=== PATIENT | female | born 1975 | race African-American/Black ===

== ENCOUNTER 2024-01-05 08:53 | Inpatient (IN) | payer OTHER ==
[~2024-01-05] VITALS: Ht 162.6 cm; Wt 103.0 kg
[2024-01-05] VITALS (9 sets, daily range): BP systolic 126–156; BP diastolic 59–81; PULSE 65–81; RESP 16–20; TEMP 98–98.9; O2SAT 94–100
[~2024-01-05 08:53] MED LIST: HYDR12.55 OR; IPRIH IN; PREN27TA7 OR
[2024-01-05] MEDS: IPRATROPIUM BROM 0.5 MG/2.5ML INH SOL NEB ONE ×2 (09:44→11:09)
[2024-01-05] MEDS: ALBUTEROL SULF 2.5 MG/0.5ML(0.5%) NEB SOLN NEB ONE ×2 (09:44→11:09)
[2024-01-05] MEDS: methylPREDNISolone SOD SUCC 125 MG/2 ML VL IV ONE (09:52)
[2024-01-05] MEDS: MAGNESIUM SULFATE 1GM/100ML 100 ML IV ONE (09:52)
[2024-01-05 09:58] LABS: Alanine Aminotransferase 31 U/L (7-40); Albumin 3.9 g/dL (3.2-4.8); Alkaline Phosphatase 68 U/L (46-116); Anion Gap 7 (5-15); Aspartate Aminotransferase 24 U/L (13-40); BUN/Creatinine Ratio 9.9 (10.0-20.0); Bilirubin, Total 0.6 mg/dL (0.2-1.0); Blood Urea Nitrogen 8 mg/dL (9-23); Calcium 9.6 mg/dL (8.7-10.4); Carbon Dioxide 24 mmol/L (20-30); Chloride 109 mmol/L (98-107); Glucose 115 mg/dL (74-106); Magnesium 1.9 mg/dL (1.6-2.6); Potassium 3.6 mmol/L (3.5-5.1); Sodium 140 mmol/L (136-145); Total Protein 6.5 g/dL (5.7-8.2)
[2024-01-05 10:02] LABS: Eosinophils # (auto) 0.1 10 ^3/uL (0-0.8); Hemoglobin 8.7 g/dL (12.2-16.2); INR 1.08 (0.9-1.15); Nucleated Red Blood Cells % 0.2 %; Partial Thromboplastin Time 26.2 SEC (24.5-34.5); Prothrombin Time 11.4 sec (9.3-11.8)
[2024-01-05 10:05] LABS: Basophils # (auto) 0.1 10 ^3/uL (0-0.2); Basophils % (auto) 1.1 % (0.0-2.0); Hematocrit 28.8 % (36.0-46.0); Lymphocytes # (auto) 1.3 10 ^3/uL (0.4-5.4); Lymphocytes % (auto) 14.7 % (10.0-50.0); Mean Corpuscular Hemoglobin 20.9 pg (28.0-32.0); Mean Corpuscular Hgb Conc. 30.4 g/dL (32.0-36.0); Mean Corpuscular Volume 68.7 fL (80.0-100.0); Monocytes # (auto) 0.4 10 ^3/uL (0-1.3); Monocytes % (auto) 4.9 % (0.0-12.0); Neutrophils # (auto) 6.8 10 ^3/uL (1.6-8.6); Neutrophils % (auto) 78.3 % (37.0-80.0); Platelet Count (auto) 321 10^3/uL (140-450); Red Blood Cells 4.19 10^6/uL (4.0-5.20); White Blood Cell 8.7 10^3/uL (4.4-10.8)
[2024-01-05 10:07] LABS: Red Cell Distribution Width 21.6 % (11.8-14.3)
[2024-01-05] MEDS: ENOXAPARIN SOD 100 MG/1 ML SYRINGE SC ONE (10:19)
[2024-01-05] MEDS: LABETALOL HCL 20 MG/4 ML VL IV ONE (10:19)
[2024-01-05] MEDS: FUROSEMIDE 20 MG/2 ML VIAL IV ONE (10:20)
[2024-01-05 11:11] LABS: Urine Bacteria None Seen /hpf (None Seen); Urine WBC None Seen /hpf (0 - 5)
[2024-01-05] MEDS: ONDANSETRON HCL 4 MG/2 ML VIAL IV ONE (11:22)
[2024-01-05] MEDS: cloNIDine HCL 0.1 MG TAB PO ONE (11:22)
[2024-01-05] MEDS: POTASSIUM CHL 20 Meq TABLET PO ONE (11:22)
[2024-01-05] MEDS: MORPHINE SULFATE 4 MG/ML SYR/VIAL IV ONE (11:23)
[2024-01-05 11:34] LABS: Urine Blood Negative /uL (Negative); Urine Clarity Turbid (Clear); Urine Color Colorless (Yellow); Urine Hyaline Cast FEW /lpf (0 - 2); Urine Protein, UAD 1+ (Negative); Urine Specific Gravity 1.005 (1.001-1.035); Urine Urobilinogen Normal (Negative)
[2024-01-05 12:08] LABS: Platelet Estimate Adequate
[2024-01-05 12:09] LABS: Anisocytosis Slight; Hypochromia Moderate; Ovalocytes MANY
[2024-01-05 12:10] LABS: Target Cell FEW
[2024-01-05] MEDS ORDERED: MORPHINE SULFATE INJ 2 MG/ml SYRG IV PRN (17:45)
[2024-01-05] MEDS ORDERED: AMLO1TAB23 PO (18:03)
[2024-01-05] MEDS ORDERED: FENO160T PO (18:06)
[2024-01-05] MEDS: ALBUTEROL SULF 2.5 MG/0.5ML(0.5%) NEB SOLN NEB SCH (19:28)
[2024-01-05] MEDS: IPRATROPIUM BROM 0.5 MG/2.5ML INH SOL NEB SCH (19:28)
[2024-01-05] MEDS: methylPREDNISolone SOD SUCC 40 MG/ML VL IV SCH (21:26)
[2024-01-05] MEDS: HYDROcodone-ACET 5/325MG TAB PO PRN (21:26)
[2024-01-05] MEDS: BUDESONIDE (INHALATION) 0.5 MG/2 ML NEB NEB SCH (22:05)
[2024-01-06] VITALS (18 sets, daily range): BP systolic 141–170; BP diastolic 78–93; PULSE 60–80; RESP 14–20; TEMP 97.7–98.5; O2SAT 92–100
[2024-01-06] MEDS ORDERED: DICL50TA5 PO (02:45)
[2024-01-06] MEDS ORDERED: SUMA100T15 PO (02:45)
[2024-01-06] MEDS ORDERED: CHOL0.05 PO (02:45)
[2024-01-06] MEDS ORDERED: GABA-1250 PO (02:45)
[2024-01-06] MEDS ORDERED: CLON0.1T PO (02:45)
[2024-01-06] MEDS ORDERED: ALBU0.084 IN (02:45)
[2024-01-06] MEDS: ONDANSETRON HCL 4 MG/2 ML VIAL IV PRN (06:32)
[2024-01-06] MEDS: MORPHINE SULFATE INJ 2 MG/ml SYRG IV PRN (06:37)
[2024-01-06 07:00] LABS: Anion Gap 5 (5-15); Carbon Dioxide 25 mmol/L (20-30); Chloride 106 mmol/L (98-107); Potassium 4.5 mmol/L (3.5-5.1); Sodium 136 mmol/L (136-145)
[2024-01-06 07:02] LABS: Calcium 9.6 mg/dL (8.7-10.4)
[2024-01-06 07:06] LABS: Glucose 148 mg/dL (74-106)
[2024-01-06 07:07] LABS: BUN/Creatinine Ratio 12.9 (10.0-20.0); Blood Urea Nitrogen 11 mg/dL (9-23)
[2024-01-06 07:30] LABS: Eosinophils # (auto) 0 10 ^3/uL (0-0.8); Lymphocytes # (auto) 0.5 10 ^3/uL (0.4-5.4); Monocytes # (auto) 0.4 10 ^3/uL (0-1.3); Platelet Count (auto) 280 10^3/uL (140-450)
[2024-01-06 07:34] LABS: Basophils # (auto) 0 10 ^3/uL (0-0.2); Basophils % (auto) 0.3 % (0.0-2.0); Eosinophils % (auto) 0.1 % (0.0-7.0); Hematocrit 26.5 % (36.0-46.0); Hemoglobin 7.8 g/dL (12.2-16.2); Lymphocytes % (auto) 3.9 % (10.0-50.0); Mean Corpuscular Hemoglobin 20.8 pg (28.0-32.0); Mean Corpuscular Hgb Conc. 29.5 g/dL (32.0-36.0); Mean Corpuscular Volume 70.5 fL (80.0-100.0); Monocytes % (auto) 3.2 % (0.0-12.0); Neutrophils # (auto) 10.8 10 ^3/uL (1.6-8.6); Neutrophils % (auto) 92.5 % (37.0-80.0); Nucleated Red Blood Cells % 0.3 %; Red Blood Cells 3.76 10^6/uL (4.0-5.20); White Blood Cell 11.6 10^3/uL (4.4-10.8)
[2024-01-06 07:44] LABS: Red Cell Distribution Width 21.5 % (11.8-14.3)
[2024-01-06 09:18] LABS: Anisocytosis Slight; Giant Platelets Few; Platelet Estimate Adequate
[2024-01-06 09:19] LABS: Hypochromia Marked; Ovalocytes MANY
[2024-01-06] MEDS: DOCUSATE SOD 100 MG CAP PO SCH (11:02)
[2024-01-06] MEDS: amLODIPine BESYLATE 5 MG TAB PO SCH (11:03)
[2024-01-06] MEDS: hydroCHLOROthiazide 25 MG TAB PO SCH (11:04)
[2024-01-06] MEDS: FUROSEMIDE 40 MG/4 ML VIAL IV ONE (11:06)
[2024-01-06] MEDS: MAGNESIUM SULFATE 1GM/100ML 100 ML IV ONE (11:07)
[2024-01-06 11:23] LABS: Blood Alcohol < 3.0 mg/dL (<10); Cholesterol 193 mg/dL (< 200); LDL Cholesterol 122 mg/dL (< 100); Triglycerides 146 mg/dL (< 150)
[2024-01-06 11:24] LABS: HDL Cholesterol 55 mg/dL (40-59)
[2024-01-06 14:51] LABS: COVID19 ANTIGEN SOFIA FIA NEGATIVE (NEGATIVE); Rapid Influenza A Negative (Negative); Rapid Influenza B Negative (Negative)
[2024-01-06] MEDS: CARVEDILOL 12.5 MG TAB PO ONE (14:58)
[2024-01-06 16:28] LABS: % Iron Saturation 5.6 % (15-50)
[2024-01-06] MEDS: PANTOPRAZOLE 40 MG TAB PO ONE (16:30)
[2024-01-06] MEDS: ASPirin 81 mg TAB PO ONE (16:30)
[2024-01-06] MEDS: ENOXAPARIN SOD 40 MG/0.4 ML SYRINGE SC ONE (16:30)
[2024-01-06] MEDS: NIFEdipine ER 30 MG TAB PO ONE (16:35)
[2024-01-06 17:05] LABS: Hemoglobin 8.7 g/dL (12.2-16.2)
[2024-01-06 17:06] LABS: Hematocrit 29.2 % (36.0-46.0)
[2024-01-06] MEDS: IPRATROPIUM BROM 0.5 MG/2.5ML INH SOL NEB SCH (18:32)
[2024-01-06] MEDS: LEVALBUTEROL HCL 1.25 MG/3 ML NEB NEB SCH (18:33)
[2024-01-06] MEDS: FERROUS SULFATE 325mg EC TAB PO SCH (20:17)
[2024-01-06] MEDS: ATORVASTATIN 20 MG TAB PO SCH (22:01)
[2024-01-06] MEDS: CARVEDILOL 12.5 MG TAB PO SCH (22:02)
[2024-01-06] MEDS: FUROSEMIDE 40 MG/4 ML VIAL IV SCH (22:21)
[2024-01-06] MEDS: ERGOCALCIFEROL 50,000 UNIT(1.25MG) CAP PO SCH (23:30)
[2024-01-07] VITALS (15 sets, daily range): BP systolic 127–166; BP diastolic 55–85; PULSE 52–97; RESP 17–20; TEMP 97.6–98.1; O2SAT 93–100
[2024-01-07] MEDS ORDERED: HYDROcodone-ACET 5/325MG TAB PO PRN (03:30)
[2024-01-07] MEDS: PANTOPRAZOLE 40 MG TAB PO SCH (06:31)
[2024-01-07 06:57] LABS: Calcium 10.8 mg/dL (8.7-10.4); Chloride 100 mmol/L (98-107); Potassium 3.9 mmol/L (3.5-5.1); Sodium 138 mmol/L (136-145)
[2024-01-07 06:58] LABS: Anion Gap 5 (5-15); Carbon Dioxide 33 mmol/L (20-30)
[2024-01-07 07:04] LABS: BUN/Creatinine Ratio 18.3 (10.0-20.0); Blood Urea Nitrogen 19 mg/dL (9-23); Glucose 136 mg/dL (74-106)
[2024-01-07 07:33] LABS: Basophils # (auto) 0 10 ^3/uL (0-0.2); Eosinophils # (auto) 0 10 ^3/uL (0-0.8); Lymphocytes # (auto) 0.6 10 ^3/uL (0.4-5.4); Mean Corpuscular Hgb Conc. 30.5 g/dL (32.0-36.0); Monocytes # (auto) 0.5 10 ^3/uL (0-1.3)
[2024-01-07 07:36] LABS: Basophils % (auto) 0.1 % (0.0-2.0); Hematocrit 29.1 % (36.0-46.0); Hemoglobin 8.9 g/dL (12.2-16.2); Lymphocytes % (auto) 3.9 % (10.0-50.0); Mean Corpuscular Volume 68.6 fL (80.0-100.0); Monocytes % (auto) 3.8 % (0.0-12.0); Neutrophils # (auto) 13.3 10 ^3/uL (1.6-8.6); Neutrophils % (auto) 92.2 % (37.0-80.0); Nucleated Red Blood Cells % 0.2 %; Platelet Count (auto) 321 10^3/uL (140-450); Red Blood Cells 4.23 10^6/uL (4.0-5.20); Red Cell Distribution Width 21.8 % (11.8-14.3); White Blood Cell 14.4 10^3/uL (4.4-10.8)
[2024-01-07] MEDS: NITROGLYCERIN 0.4 MG SL TAB SL PRN (08:40)
[2024-01-07] MEDS: ENOXAPARIN SOD 40 MG/0.4 ML SYRINGE SC SCH (09:48)
[2024-01-07] MEDS: MORPHINE SULFATE INJ 2 MG/ml SYRG IV ONE (09:48)
[2024-01-07] MEDS: ASPirin 81 mg TAB PO SCH (09:49)
[2024-01-07] MEDS: NIFEdipine ER 30 MG TAB PO SCH (11:03)
[2024-01-07] MEDS: CYANOCOBALAMIN (B-12) 1000 MCG/1 ML VIAL IM ONE (11:06)
[2024-01-07] MEDS: HYDROcodone-ACET 10/325MG TAB PO PRN (16:00)
[2024-01-07] MEDS: LORATADINE 10 MG TAB PO ONE (17:46)
[2024-01-08] VITALS (17 sets, daily range): BP systolic 117–159; BP diastolic 61–84; PULSE 52–68; RESP 14–20; TEMP 97.3–98.4; O2SAT 90–100
[2024-01-08] MEDS: hydrALAZINE HCL 20 MG/ML VL IV PRN (05:28)
[2024-01-08] MEDS: LORATADINE 10 MG TAB PO SCH (09:11)
[2024-01-08 10:18] LABS: Basophils # (auto) 0.1 10 ^3/uL (0-0.2); Eosinophils # (auto) 0 10 ^3/uL (0-0.8); Hemoglobin 10.8 g/dL (12.2-16.2); Mean Corpuscular Volume 66.9 fL (80.0-100.0); Nucleated Red Blood Cells % 0.2 %
[2024-01-08 10:19] LABS: Basophils % (auto) 0.4 % (0.0-2.0); Eosinophils % (auto) 0.1 % (0.0-7.0); Hematocrit 35.3 % (36.0-46.0); Lymphocytes # (auto) 1.5 10 ^3/uL (0.4-5.4); Lymphocytes % (auto) 10.2 % (10.0-50.0); Mean Corpuscular Hemoglobin 20.5 pg (28.0-32.0); Mean Corpuscular Hgb Conc. 30.7 g/dL (32.0-36.0); Monocytes % (auto) 6.4 % (0.0-12.0); Neutrophils # (auto) 12.4 10 ^3/uL (1.6-8.6); Neutrophils % (auto) 82.9 % (37.0-80.0); Platelet Count (auto) 397 10^3/uL (140-450); Red Blood Cells 5.28 10^6/uL (4.0-5.20); Red Cell Distribution Width 22.4 % (11.8-14.3); White Blood Cell 14.9 10^3/uL (4.4-10.8)
[2024-01-08] MEDS: MORPHINE SULFATE INJ 2 MG/ml SYRG IV PRN ×2 (10:23→23:35)
[2024-01-08 10:31] LABS: Alanine Aminotransferase 26 U/L (7-40); Albumin 4.5 g/dL (3.2-4.8); Alkaline Phosphatase 69 U/L (46-116); Anion Gap 7 (5-15); Aspartate Aminotransferase 11 U/L (13-40); Blood Urea Nitrogen 23 mg/dL (9-23); Calcium 11.2 mg/dL (8.7-10.4); Carbon Dioxide 35 mmol/L (20-30); Chloride 95 mmol/L (98-107); Glucose 102 mg/dL (74-106); Potassium 3.5 mmol/L (3.5-5.1); Sodium 137 mmol/L (136-145)
[2024-01-08 10:32] LABS: Bilirubin, Total 0.6 mg/dL (0.2-1.0); Total Protein 7.8 g/dL (5.7-8.2)
[2024-01-08 10:42] LABS: Anisocytosis Slight; Hypochromia Slight; Platelet Estimate Adequate
[2024-01-08 10:43] LABS: Ovalocytes MODERATE
[2024-01-08] MEDS: IPRATROPIUM BROM 0.5 MG/2.5ML INH SOL NEB SCH (19:01)
[2024-01-09] VITALS (22 sets, daily range): BP systolic 120–155; BP diastolic 72–89; PULSE 50–82; RESP 12–20; TEMP 97–98.1; O2SAT 91–100
[2024-01-09 06:36] LABS: Basophils # (auto) 0.1 10 ^3/uL (0-0.2); Basophils % (auto) 0.4 % (0.0-2.0); Eosinophils # (auto) 0 10 ^3/uL (0-0.8); Eosinophils % (auto) 0.1 % (0.0-7.0); Hemoglobin 10.8 g/dL (12.2-16.2)
[2024-01-09 06:38] LABS: Hematocrit 34.9 % (36.0-46.0); Lymphocytes # (auto) 2.7 10 ^3/uL (0.4-5.4); Lymphocytes % (auto) 20.4 % (10.0-50.0); Mean Corpuscular Volume 67.9 fL (80.0-100.0); Monocytes # (auto) 1.1 10 ^3/uL (0-1.3); Monocytes % (auto) 8.3 % (0.0-12.0); Neutrophils # (auto) 9.2 10 ^3/uL (1.6-8.6); Neutrophils % (auto) 70.8 % (37.0-80.0); Nucleated Red Blood Cells % 0.2 %; Platelet Count (auto) 404 10^3/uL (140-450); Red Blood Cells 5.14 10^6/uL (4.0-5.20)
[2024-01-09 06:43] LABS: Alanine Aminotransferase 17 U/L (7-40); Alkaline Phosphatase 61 U/L (46-116); Anion Gap 5 (5-15); BUN/Creatinine Ratio 22.3 (10.0-20.0); Blood Urea Nitrogen 27 mg/dL (9-23); Calcium 10.2 mg/dL (8.7-10.4); Carbon Dioxide 36 mmol/L (20-30); Chloride 96 mmol/L (98-107); Glucose 97 mg/dL (74-106); Magnesium 2.1 mg/dL (1.6-2.6); Potassium 3.6 mmol/L (3.5-5.1); Sodium 137 mmol/L (136-145)
[2024-01-09 06:44] LABS: Aspartate Aminotransferase < 8 U/L (13-40); Phosphorus 3.9 mg/dL (2.4-5.1)
[2024-01-09 06:45] LABS: Bilirubin, Total 0.4 mg/dL (0.2-1.0); Total Protein 6.8 g/dL (5.7-8.2)
[2024-01-09 06:57] LABS: Red Cell Distribution Width 21.5 % (11.8-14.3)
[2024-01-09 08:47] LABS: Anisocytosis Moderate; Platelet Estimate Adequate
[2024-01-09 08:48] LABS: Hypochromia Slight; Ovalocytes MANY; Tear Drop Cells FEW
[2024-01-09] MEDS: LOSARTAN POTASSIUM 25 MG TAB PO SCH (09:11)
[2024-01-09] MEDS ORDERED: FUROSEMIDE 40 MG/4 ML VIAL IV SCH (10:00)
[2024-01-09 11:04] LABS: Folate (Folic Acid) 11.4 ng/mL (>5.38)
[2024-01-09 11:05] LABS: Ferritin 7.4 ng/mL (10-291)
[2024-01-09] MEDS: HEPARIN SODIUM (PORCINE) 5000 UNITS/ML 1ML VIAL ONE (12:36)
[2024-01-09] MEDS: ANGIOMAX 250 MG VIAL IV ONE (12:36)
[2024-01-09] MEDS: fentaNYL CITRATE 100 MCG/2 ML VL ONE (12:36)
[2024-01-09] MEDS: MIDAZOLAM HCL 2MG/2ML 2ml VIAL (1mg/ml) ONE (12:36)
[2024-01-09] MEDS: VERAPAMIL 2.5MG/ML INJ 2ML VIAL IV ONE (12:36)
[2024-01-09] MEDS: LIDOCAINE 2%HCL (LOCAL ANESTH.) INJ 20ML MDV ONE (12:37)
[2024-01-09] MEDS: SODIUM CHL 0.9% 50 ML ONE (12:37)
[2024-01-09] MEDS: SODIUM CHLORIDE 0.9% 1,000 ML IV SCH (17:35)
[2024-01-09] MEDS: LEVALBUTEROL HCL 1.25 MG/3 ML NEB NEB SCH (19:19)
[2024-01-10] VITALS (15 sets, daily range): BP systolic 110–137; BP diastolic 55–84; PULSE 49–68; RESP 14–20; TEMP 98–98.5; O2SAT 93–100
[2024-01-10 11:06] LABS: Chloride 97 mmol/L (98-107); Potassium 3.4 mmol/L (3.5-5.1); Sodium 136 mmol/L (136-145)
[2024-01-10 11:07] LABS: Anion Gap 5 (5-15); Calcium 9.9 mg/dL (8.7-10.4); Carbon Dioxide 34 mmol/L (20-30)
[2024-01-10 11:12] LABS: BUN/Creatinine Ratio 18.8 (10.0-20.0); Blood Urea Nitrogen 27 mg/dL (9-23); Glucose 133 mg/dL (74-106)
[2024-01-10] MEDS ORDERED: [UNRECOGNIZED DRUG - CODE] TL (13:36)
[2024-01-10] MEDS ORDERED: ISOS1TAB28 PO (13:36)
[2024-01-10 15:46] LABS: Basophils # (auto) 0.1 10 ^3/uL (0-0.2); Basophils % (auto) 0.5 % (0.0-2.0); Eosinophils # (auto) 0.2 10 ^3/uL (0-0.8); Hematocrit 35.6 % (36.0-46.0); Lymphocytes # (auto) 1.8 10 ^3/uL (0.4-5.4); Lymphocytes % (auto) 17.9 % (10.0-50.0); Mean Corpuscular Hemoglobin 20.9 pg (28.0-32.0); Mean Corpuscular Hgb Conc. 30.9 g/dL (32.0-36.0); Mean Corpuscular Volume 67.7 fL (80.0-100.0); Monocytes # (auto) 0.8 10 ^3/uL (0-1.3); Monocytes % (auto) 7.5 % (0.0-12.0); Neutrophils # (auto) 7.3 10 ^3/uL (1.6-8.6); Neutrophils % (auto) 72.1 % (37.0-80.0); Platelet Count (auto) 327 10^3/uL (140-450); Red Blood Cells 5.26 10^6/uL (4.0-5.20); Red Cell Distribution Width 22.3 % (11.8-14.3); White Blood Cell 10.2 10^3/uL (4.4-10.8)
[2024-01-10] MEDS: POTASSIUM CHL 20 Meq TABLET PO ONE (18:42)
[2024-01-10] MEDS: LACTULOSE 20Gm/30ML SOLN PO ONE (23:00)
[2024-01-11] VITALS (7 sets, daily range): BP systolic 126–148; BP diastolic 75; PULSE 55–73; RESP 17–18; TEMP 98–98.2; O2SAT 92–100
[2024-01-11 08:17] LABS: Basophils # (auto) 0 10 ^3/uL (0-0.2); Eosinophils # (auto) 0.3 10 ^3/uL (0-0.8); Hemoglobin 10.3 g/dL (12.2-16.2); Monocytes # (auto) 0.9 10 ^3/uL (0-1.3)
[2024-01-11 08:20] LABS: Basophils % (auto) 0.5 % (0.0-2.0); Eosinophils % (auto) 2.8 % (0.0-7.0); Lymphocytes # (auto) 2.3 10 ^3/uL (0.4-5.4); Lymphocytes % (auto) 23.7 % (10.0-50.0); Mean Corpuscular Hemoglobin 20.3 pg (28.0-32.0); Mean Corpuscular Hgb Conc. 29.4 g/dL (32.0-36.0); Mean Corpuscular Volume 69.1 fL (80.0-100.0); Neutrophils # (auto) 6.1 10 ^3/uL (1.6-8.6); Nucleated Red Blood Cells % 0.2 %; Platelet Count (auto) 322 10^3/uL (140-450); Red Blood Cells 5.07 10^6/uL (4.0-5.20); Red Cell Distribution Width 22.2 % (11.8-14.3); White Blood Cell 9.5 10^3/uL (4.4-10.8)
[2024-01-11 08:30] LABS: Chloride 103 mmol/L (98-107); Potassium 3.6 mmol/L (3.5-5.1); Sodium 139 mmol/L (136-145)
[2024-01-11 08:31] LABS: Anion Gap 6 (5-15); Calcium 9.8 mg/dL (8.7-10.4); Carbon Dioxide 30 mmol/L (20-30)
[2024-01-11 08:36] LABS: BUN/Creatinine Ratio 15.5 (10.0-20.0); Blood Urea Nitrogen 17 mg/dL (9-23); Glucose 72 mg/dL (74-106)
[2024-01-11] MEDS: ISOSORBIDE MONONITRATE ER 60 MG TAB PO SCH (09:48)
== END 2024-01-11 14:10 | disposition home or self-care (01) | DRG 190 ==
LOC: ER 08:53 → EDBD 08:53 → TELE 17:45 → TELE-CENTR 18:39
PROVIDERS: ADMIT Internal Medicine; ATTEND Internal Medicine
PROC: 4A023N7 Measurement of Cardiac Sampling and Pressure, Left Heart, Percutaneous Approach (ICD-10-PCS; principal; 2024-01-09)
PROC: B211YZZ Fluoroscopy of Multiple Coronary Arteries using Other Contrast (ICD-10-PCS; 2024-01-09)
DX: I21.4 Non-ST elevation (NSTEMI) myocardial infarction (principal); J96.01 Acute respiratory failure with hypoxia; I50.43 Acute on chronic combined systolic (congestive) and diastolic (congestive) heart failure; J44.1 Chronic obstructive pulmonary disease with (acute) exacerbation; N17.9 Acute kidney failure, unspecified; I47.20 Ventricular tachycardia, unspecified; J45.901 Unspecified asthma with (acute) exacerbation; I11.0 Hypertensive heart disease with heart failure; R73.9 Hyperglycemia, unspecified; G89.29 Other chronic pain; N14.11 Contrast-induced nephropathy; T50.8X5A Adverse effect of diagnostic agents, initial encounter; E66.9 Obesity, unspecified; I25.5 Ischemic cardiomyopathy; D50.9 Iron deficiency anemia, unspecified; E78.5 Hyperlipidemia, unspecified; K42.9 Umbilical hernia without obstruction or gangrene; E55.9 Vitamin D deficiency, unspecified; I16.1 Hypertensive emergency; F17.210 Nicotine dependence, cigarettes, uncomplicated; Z68.34 Body mass index [BMI] 34.0-34.9, adult; Z90.49 Acquired absence of other specified parts of digestive tract; Z88.0 Allergy status to penicillin; Y92.89 Other specified places as the place of occurrence of the external cause
CPT/HCPCS: 36415; 71045; 74176; 76700; 76881; 80048; 80053; 80061; 80320; 81001; 82306; 82607; 82728; 82746; 83010; 83036; 83540; 83550; 83735; 83880; 84100; 84484; 84702; 85014; 85018; 85025; 85610; 85730; 86850; 86900; 86901; 87081; 87086; 87426; 87804; 93005; 93306; 93458; 94640; 94644; 99152; 99291; G0378; J2250; J2405

== ENCOUNTER 2024-10-30 22:19 | Inpatient (IN) | payer MEDICAID, OTHER ==
[~2024-10-30] VITALS: Ht 160 cm; Wt 103.2 kg
[~2024-10-30 22:19] MED LIST changes: +ALBU0.084 IN; +AMLO1TAB23 PO; +CHOL0.05 PO; +CLON0.1T PO; +DICL50TA5 PO; +FENO160T PO; +GABA-1250 PO; +ISOS1TAB28 PO; +SUMA100T15 PO; +[UNRECOGNIZED DRUG - CODE] TL
[2024-10-30] MEDS: ONDANSETRON ODT 4 MG TAB PO ONE (23:19)
[2024-10-30] MEDS: HYDROcodone-ACET 10/325MG TAB PO ONE (23:20)
--- NOTE | 2024-10-30 23:27 | ED.PDOC ---
Musculoskeletal HPI Comments 49-year-old female presents to ER with complaints of right knee pain x1 week. Patient with past medical history significant for chronic right knee pain and HTN reports she has been experiencing worsening right knee pain/swelling to right knee s/p her right knee "popping in and out of place" while walking 1 week ago. Denies use of medications for current symptoms and presents to ER ambulatory with blood pressure 213/143 and associated 10/10 frontal headache, denying any other hypertensive symptoms. Denies fever, dizziness, shortness of breath, chest pain, falls or any further symptoms/complaints Chief Complaint: Lower Extremity Time Seen by MD: 22:50 Primary Care Provider: NAVEEN Reviewed Notes: Nurses Notes, Medications, Allergies Allergies: Coded Allergies: Penicillins (Verified Allergy, Unknown, 01/05/24) Home Meds Active Scripts Nitroglycerin (Nitrolingual) 0.4 Mg/[place] Spr, 0.4 MG TL 6XD PRN for 30 Days, #30 SPRAY Prov:JAIRON HERNADEZ RESIDENT 01/10/24 Isosorbide Mononitrate (Isosorbide Mononitrate Er) 30 Mg Tab, 30 MG PO DAILY for 30 Days, #30 TAB 1 Refill Prov:JAIRON HERNADEZ RESIDENT 01/10/24 Reported Medications Cholecalciferol (Vitamin D3) 5,000 Unit Chw, 5000 UNIT PO DAILY, TAB.CHEW 01/06/24 Gabapentin (Gabapentin) 300 Mg Cap, 300 MG PO DAILY, MG 01/06/24 Clonidine Hydrochloride (Clonidine Hcl) 0.1 Mg Tab, 0.1 MG PO Q6HP for Systolic greater than 160, MG 01/06/24 Diclofenac Sodium (Diclofenac Sodium Dr) 50 Mg Tab, 50 MG PO BID, TAB 01/06/24 Sumatriptan Succinate (Sumatriptan Succinate) 100 Mg Tab, 100 MG PO DAILY, MG 01/06/24 Albuterol Sulfate (Albuterol Sulfate) 0.083 % Neb, 0.083 % IN TID, INH 01/06/24 Fenofibrate (Fenofibrate) 160 Mg Tab, 1 TAB PO DAILY 01/05/24 Amlodipine Besylate (Amlodipine Besylate) 10 Mg Tab, 1 TAB PO DAILY 01/05/24 Vit W/ Ferrous Fumara () 1 Tab Tab, 1 TAB OR DAILYP, TAB 06/25/13 Hydrochlorothiazide (Hydrochlorothiazide) 12.5 Mg Tab, 12.5 MG OR DAILY 12/31/09 Ipratropium [place] Hfa (Atrovent Hfa) 17 Mcg Aer, 17 MCG IN 12/31/09 Information Source: Patient Mode of Arrival: Ambulatory Past Medical History PAST MEDICAL HISTORY: Asthma, CHF, HTN Surgical History: BTL, POST 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 History: Other Family History Family History: Unknown Social History Smoker: Cigarettes, Less Than 1 Pack/Day Alcohol: Denies ETOH Use Drugs: Denies Drug Use Lives In: Home Constitutional: denies: chills, diaphoresis, fatigue, fever, malaise, sweats, weakness, others EENTM: denies: blurred vision, double vision, ear bleeding, ear discharge, ear drainage, ear pain, ear ringing, eye pain, eye redness, hearing loss, mouth pain, mouth swelling, nasal discharge, nose bleeding, nose congestion, nose pain, photophobia, tearing, throat pain, throat swelling, voice changes, others Respiratory: denies: cough, hemoptysis, orthopnea, SOB at rest, shortness of breath, SOB with excertion, stridor, wheezing, others Cardiovascular: denies: chest pain, dizzy spells, diaphoresis, Dyspnea on exertion, edema, irregular heart beat, left arm pain, lightheadedness, palpitations, PND, syncope, others Gastrointestinal: denies: abdomen distended, abdominal pain, blood streaked bowels, constipated, diarrhea, dysphagia, difficulty swallowing, hematemesis, melena, nausea, poor appetite, poor fluid intake, rectal bleeding, rectal pain, vomiting, others Genitourinary: denies: abnormal vagina bleeding, burning, dyspareunia, dysuria, flank pain, frequency, hematuria, incontinence, pain, , vagina discharge, urgency, others Neurological: reports: others (As stated in HPI) Musculoskeletal: reports: others (As stated in HPI) Integumetry: reports: others (As stated in HPI) Allergic/Immunocompromised: denies: Difficulty Healing, Frequent Infections, Hives, Itching, others Hematologic/Lymphatic: denies: anemia, blood clots, easy bleeding, easy bruising, swollen glands, others Endocrine: denies: excessive hunger, excessive sweating, excessive thirst, excessive urination, flushing, intolerance to cold, intolerance to heat, unexplained weight gain, unexplained weight loss, others Psychiatric: denies: anxiety, bipolar disorder, depression, hopeless, panic disorder, schizophrenia, sleepless, suicidal, others Physical Exam General Appearance: No Apparent Distress HEENT: Normal ENT Inspection, PERRL/EOMI, Pharynx Normal, TMs Normal Neck: Full Range of Motion, Non-Tender, Normal Respiratory: Chest Non-Tender, Lungs Clear, No Accessory Muscle Use, No Respiratory Distress, Normal Breath Sounds Cardiovascular: No Murmur, No Gallop, Regular Rate/Rhythm Breast Exam: Deferred Gastrointestinal: NOT DONE Genitalia: Deferred Pelvic: Deferred Rectal: Deferred Extremities: No calf tenderness, Normal capillary refill, Normal range of motion Musculoskeletal : Extremity Location: Knee (TTP/moderate swelling noted to right anterior knee. Positive anterior drawer test and Michelle's test right knee. No deformity/further skin changes noted pulses intact. 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 Was a procedure done?: No Sedation Sedation?: No EKG EKG : Pulse Rate (adult): 63 Cardiac Rhythm: NSR (SR) Differential Diagnosis EXT Differential Diagnosis: Cellulitis, Deep Vein Thrombosis, Fracture, Neurovascular injury, Other (CVA, NC) X-Ray, Labs, Meds, VS Vital Signs Date Time Temp Pulse Resp B/P (MAP) Pulse Ox O2 Delivery O2 Flow Rate FiO2 10/31/24 01:39 63 10/31/24 01:29 63 10/31/24 01:00 65 14 140/69 (92) 100 10/31/24 00:36 80 17 150/99 (116) 100 10/31/24 00:19 150/99 10/30/24 23:19 182/121 10/30/24 22:50 98.7 98 20 213/143 (166) 99 98.7 Lab Test 10/31/24 00:40 10/31/24 00:22 10/31/24 00:20 10/30/24 23:37 Range/Units Total Bilirubin 0.3 0.2-1.0 mg/dL Direct Bilirubin < 0.1 <0.3 mg/dL Aspartate Amino Transferase (AST) 20 13-40 U/L Alanine Aminotransferase (ALT) 24 7-40 U/L Alkaline Phosphatase 72 46-116 U/L Troponin I High Sensitivity 496 *H 590 *H </=34 ng/L Total Protein 7.1 5.7-8.2 g/dL Albumin 4.3 3.2-4.8 g/dL Vitamin B12 Level 326 211-911 pg/mL Vitamin D 25-Hydroxy 25.7 L 30.0-100 ng/mL Folic Acid 21.17 >5.38 ng/mL Plasma/Serum Blood Alcohol 3.0 <10 mg/dL White Blood Count 14.1 H 4.4-10.8 10^3/uL Red Blood Count 5.12 4.0-5.20 10^6/uL Hemoglobin 13.4 12.2-16.2 g/dL Hematocrit 42.2 36.0-46.0 % Mean Corpuscular Volume 82.4 80.0-100.0 fL Mean Corpuscular Hemoglobin 26.2 L 28.0-32.0 pg Mean Corpuscular Hemoglobin Concent 31.8 L 32.0-36.0 g/dL Red Cell Distribution Width 17.0 H 11.8-14.3 % Platelet Count 212 140-450 10^3/uL Mean Platelet Volume 11.6 H 6.9-10.8 fL Neutrophils (%) (Auto) 69.9 37.0-80.0 % Lymphocytes (%) (Auto) 20.8 10.0-50.0 % Monocytes (%) (Auto) 6.7 0.0-12.0 % Eosinophils (%) (Auto) 1.5 0.0-7.0 % Basophils (%) (Auto) 1.1 0.0-2.0 % Neutrophils # (Auto) 9.8 H 1.6-8.6 10 ^3/uL Lymphocytes # (Auto) 2.9 0.4-5.4 10 ^3/uL Monocytes # (Auto) 0.9 0-1.3 10 ^3/uL Eosinophils # (Auto) 0.2 0-0.8 10 ^3/uL Basophils # (Auto) 0.2 0-0.2 10 ^3/uL Nucleated Red Blood Cells 0.0 % Platelet Estimate Adequate Large Platelets Few Ovalocytes Many Hemoglobin A1c 4.7 <5.7 % A1C B-Type Natriuretic Peptide 651.68 0-100 pg/mL Sodium Level 139 136-145 mmol/L Potassium Level 4.0 3.5-5.1 mmol/L Chloride Level 108 H 98-107 mmol/L Carbon Dioxide Level 24 20-31 mmol/L Anion Gap 7 5-15 Blood Urea Nitrogen 8 L 9-23 mg/dL Creatinine 1.04 H 0.550-1.02 mg/dL Glomerular Filtration Rate Calc 66 >90 mL/min BUN/Creatinine Ratio 7.7 L 10.0-20.0 Serum Glucose 87 74-106 mg/dL Calcium Level 10.1 8.7-10.4 mg/dL Thyroid Stimulating Hormone (TSH) 1.69 0.55-4.78 uIU/mL Current Medications Medications (Trade) Dose Ordered Sig/Dee Route Start Time Stop Time Status Last Admin Clonidine HCl (Catapres Tablet) 0.2 mg ONCE ONCE PO 10/30/24 23:15 10/30/24 23:16 DC 10/30/24 23:19 Acetaminophen/ Hydrocodone Bitart (Smoot 10/325MG Tab) 1 tab ONCE ONCE PO 10/30/24 23:15 10/30/24 23:16 DC 10/30/24 23:20 Ondansetron HCl (Zofran Po) 4 mg ONCE ONCE PO 10/30/24 23:15 10/30/24 23:16 DC 10/30/24 23:19 Aspirin 325 mg ONCE ONCE PO 10/31/24 00:15 10/31/24 00:16 DC 10/31/24 00:37 Ceftriaxone Sodium 50 ml @ 100 mls/hr ONCE ONCE IV 10/31/24 00:45 10/31/24 01:14 DC 10/31/24 01:17 PATIENT: JESSICA RANGEL MICHAELCCT: [id number]: [id number] : 1975 LOC: ER ROOM / BED: / AGE / SEX: 49 / F ADM STATUS: REG ER SERVICE 02 ORDERING PHYSICIAN: OZZY CASANOVA PROCEDURE(s): HWOCT - HEAD WITHOUT CONTRAST REASON: headache ORDER NUMBER(s): [id number], ACCESSION NUMBER(s): [id number] EXAM: CT HEAD WITHOUT CONTRAST INDICATION: headache TECHNIQUE: CT of the head without intravenous contrast. Radiation Dose : 1. Head: CT Dose: CTDI volume is 59.07 cm mGy. Dose-length product is 946.78 mGy*cm The dose indicators for CT are the volume Computed Tomography (CT) Dose Index (CTDIvol) and the Dose Length Product (DLP), and are measured in units of mGy and mGy-cm, respectively. These indicators are not patient dose, but values generated from the CT scanner acquisition factors. The report includes radiation exposure data for exposures received during this examination. COMPARISON: None FINDINGS: There is no evidence of acute intracranial hemorrhage, extra-axial collection, mass effect, midline shift, herniation or hydrocephalus. The ventricles, sulci and cisterns are age appropriate. The babin-white differentiation is intact. The visualized paranasal sinuses and mastoid air cells are clear. The surrounding soft tissues and osseous structures are unremarkable. IMPRESSION: 1. No acute intracranial abnormality. Radiation optimization: All CT scans at this facility use at least one of these dose optimization techniques: automated exposure control mA and/or kV adjustment per patient size (includes targeted exams where dose is matched to clinical indication) or iterative reconstruction. ATED BY: BOONE GARCIA MD DICTATED DATE/TIME: 10/31/2443 SIGNED BY: BOONE GARCIA MD SIGNED DATE/TIME: 10/31/2443 CC: PATIENT: JESSICA RANGEL ACCT: [id number] UNIT: [id number] : 1975 LOC: ER ROOM / BED: / AGE / SEX: 49 / F ADM STATUS: REG ER SERVICE 02 ORDERING PHYSICIAN: OZZY CASANOVA PROCEDURE(s): RLDVT - RT Lower DVT REASON: right leg pain ORDER NUMBER(s): [id number], ACCESSION NUMBER(s): [id number] RIGHT LOWER EXTREMITY VENOUS DUPLEX REASON FOR EXAMINATION: Right lower extremity pain and edema. Right knee pain. COMPARISON: None TECHNIQUE: Using real-time freeze-frame technique with a high-frequency transducer, multiple longitudinal and transverse sections were obtained. Simultaneous color flow and spectral Doppler imaging was performed. FINDINGS: There is good visualization of the deep venous system with no intraluminal filling defects identified. Normal venous compressibility is seen and there is flow augmentation. Color flow Doppler imaging is unremarkable. There is a complex, lobulated anechoic cystic structure in the right popliteal fossa measuring 3.3 x 2.9 by 4.9 cm, most consistent with a partially ruptured fagan's cyst IMPRESSION: No evidence of deep venous thrombosis. Fagan's cyst in the right popliteal fossa, likely partially ruptured. ATED BY: AURELIO JONES MD DICTATED DATE/TIME: 10/31/24 0004 SIGNED BY: AURELIO JONES MD SIGNED DATE/TIME: 10/31/24 0004 CC: PATIENT: JESSICA RANGEL ACCT: [id number] UNIT: [id number] : 1975 LOC: ER ROOM / BED: / AGE / SEX: 49 / F ADM STATUS: REG ER SERVICE 2303 ORDERING PHYSICIAN: OZZY CASANOVA PROCEDURE(s): RKN3 - R KNEE 3V XRAY REASON: right knee pain ORDER NUMBER(s): [id number], ACCESSION NUMBER(s): [id number] CLINICAL INDICATION: right knee pain TECHNIQUE: XY R KNEE 3V XRAY Comparison: None FINDINGS/IMPRESSION: : There is no evidence of acute fracture or dislocation. Chondrocalcinosis within the medial and lateral tibiofemoral compartments. Moderate suprapatellar effusion. The soft tissues are otherwise unremarkable. ATED BY: BOONE GARCIA MD DICTATED DATE/TIME: 10/31/24 0026 SIGNED BY: BOONE GARCIA MD SIGNED DATE/TIME: 10/31/24 0026 CC: CBC - WBC 14.1 BMP reviewed without any significant abnormalities Troponin 590 reviewed EKG reviewed Right knee x-ray reviewed Right lower DVT ultrasound reviewed CT head without contrast reviewed Chest x-ray ordered Clonidine 0.2 mg p.o. ordered Smoot 10/325 mg p.o. ordered ordered Zofran 4 mg p.o. ordered Aspirin 325 mg p.o. ordered Hep-lock IV ordered Rocephin 1 g IV ordered Patient presented hypertensive on arrival at 213/143 and troponin elevated at 590 Patient resting comfortably at bedside denying any chest pain/shortness of breath with current blood pressure 150/99 Patient admitted to hospitalist for hypertensive emergency and need for cardiac consult Images Reviewed?: Images reviewed and evaluated by me Time of 1ST Reevaluation: 23:32 Reevaluation 1ST: N/A Patient Education/Counseling: Diagnosis, Treatment, Prognosis, Need For Follow Up Family Education/Counseling: No Family Present Departure 1 Departure Time of Disposition: 00:12 Impression: Primary Impression: Hypertensive emergency Additional Impressions: Right knee sprain Qualified Codes: S83.91XA - Sprain of unspecified site of right knee, initial encounter Elevated troponin Disposition: HOME / SELF CARE / HOMELESS Condition: Critical Critical Care Note Critical Care Time?: No Stability Stability form required: No Heart Score Heart Score: Heart Score Response (Comments) Value History N/A 0 EKG N/A 0 Age N/A 0 Risk Factors N/A 0 Troponin N/A 0 Total 0 OZZY CASANOVA Oct 30, 2024 23:27
[2024-10-30 23:56] LABS: Potassium 4.0 mmol/L (3.5-5.1); Sodium 139 mmol/L (136-145)
[2024-10-30 23:57] LABS: Anion Gap 7 (5-15); Carbon Dioxide 24 mmol/L (20-31)
[2024-10-30 23:58] LABS: Calcium 10.1 mg/dL (8.7-10.4)
[2024-10-31] VITALS (9 sets, daily range): BP systolic 130–142; BP diastolic 75–87; PULSE 54–82; RESP 14–19; TEMP 97.8–98.7; O2SAT 93–100
[2024-10-31] LABS: Chloride 108 mmol/L (98-107)
[2024-10-31 00:02] LABS: BUN/Creatinine Ratio 7.7 (10.0-20.0); Glucose 87 mg/dL (74-106)
--- NOTE | 2024-10-31 00:06 | DVH ---
RIGHT LOWER EXTREMITY VENOUS DUPLEX REASON FOR EXAMINATION: Right lower extremity pain and edema. Right knee pain. COMPARISON: None TECHNIQUE: Using real-time freeze-frame technique with a high-frequency transducer, multiple longitu dinal and transverse sections were obtained. Simultaneous color flow and spectral Doppler imaging wa s performed. FINDINGS: There is good visualization of the deep venous system with no intraluminal filling defects identified. Normal venous compressibility is seen and there is flow augmentation. Color flow Doppler imaging is unremarkable. There is a complex, lobulated anechoic cystic structure in the right popliteal fossa measuring 3.3 x 2.9 by 4.9 cm, most consistent with a partially ruptured fagan's cyst IMPRESSION: No evidence of deep venous thrombosis. Fagan's cyst in the right popliteal fossa, likely partially ruptured.
[2024-10-31 00:12] LABS: Blood Urea Nitrogen 8 mg/dL (9-23)
--- NOTE | 2024-10-31 00:29 | DVH ---
CLINICAL INDICATION: right knee pain TECHNIQUE: XY R KNEE 3V XRAY Comparison: None FINDINGS/IMPRESSION: : There is no evidence of acute fracture or dislocation. Chondrocalcinosis within the medial and lateral tibiofemoral compartments. Moderate suprapatellar effusion. The soft tissues are otherwise unremarkable.
[2024-10-31 00:36] LABS: Nucleated Red Blood Cells % 0.0 %
[2024-10-31 00:38] LABS: Hematocrit 42.2 % (36.0-46.0); Hemoglobin 13.4 g/dL (12.2-16.2); Mean Corpuscular Hemoglobin 26.2 pg (28.0-32.0); Mean Corpuscular Volume 82.4 fL (80.0-100.0)
--- NOTE | 2024-10-31 00:47 | DVH ---
EXAM: CT HEAD WITHOUT CONTRAST INDICATION: headache TECHNIQUE: CT of the head without intravenous contrast. Radiation Dose : 1. Head: CT Dose: CTDI volume is 59.07 cm mGy. Dose-length product is 946.78 mGy*cm The dose indicators for CT are the volume Computed Tomography (CT) Dose Index (CTDIvol) and the Dose Length Product (DLP), and are measured in units of mGy and mGy-cm, respectively. These indicators are not patient dose, but values generated from the CT scanner acquisition factors. The report includes radiation exposure data for exposures received during this examination. COMPARISON: None FINDINGS: There is no evidence of acute intracranial hemorrhage, extra-axial collection, mass effect, midline s hift, herniation or hydrocephalus. The ventricles, sulci and cisterns are age appropriate. The babin-white differentiation is intact. The visualized paranasal sinuses and mastoid air cells are clear. The surrounding soft tissues and osseous structures are unremarkable. IMPRESSION: 1. No acute intracranial abnormality. Radiation optimization: All CT scans at this facility use at least one of these dose optimization conor hniques: automated exposure control mA and/or kV adjustment per patient size (includes targeted exam s where dose is matched to clinical indication) or iterative reconstruction.
[2024-10-31 01:03] LABS: Ovalocytes MANY
[2024-10-31] MEDS: cefTRIAXone 1GM/50ML D5W 50 ML IV ONE (01:17)
--- NOTE | 2024-10-31 01:59 | DVHHP2 ---
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 As per patient he has chronic right knee pain which got worse on most 1 week before. As per patient when she was walking 1 week before she heard right knee "popping in and out of place". Right knee pain was 10/10 at the beginning, gradual, constant, sharp, aggravated with movement, relieved with some pain medication. Patient also reported having chest pain started last night around 7:30 p.m., gradual onset, 8/10, central, radiating to the left side of neck, associated with the shortness of breaths, no aggravating or relieving factor. On further inquiry patient also reported throbbing headache, 10/10, relieved with the pain medication. Patient denied any fever, sweating, nausea or vomiting, diarrhea, dysarthria or change in vision. On arrival patient's blood pressure was 213/143, was 98. EKG sinus rhythm, no acute ST elevation or depression. Initial lab workup revealed troponin I 590> 496> 456, BNP 651, WBC 14.1, RDW 17.0. Doppler study of the right lower extremity revealed No evidence of deep venous thrombosis. Fagan's cyst in the right popliteal fossa, likely partially ruptured. X-ray of the right knee- Chondrocalcinosis within the medial and lateral tibiofemoral compartments. Moderate suprapatellar effusion. CT head negative for acute intracranial abnormality. Past Medical History hypertension,HFmrEFm, 40-45%, asthma, sciatica Past Surgical History Bilateral tubal ligation, , right knee ligament tear repair Past Social History Smoker, < 1 pack per day, occasional alcoholic, denies substance abuse, lives with kids Review of Systems Review of Systems Allergy- penicillin Patient was seen today at the bedside. Respiratory denies cough or wheezing Gastrointestinal- denies any rectal bleeding, nausea or vomiting Musculoskeletal-denies acute joint swelling or tenderness or redness Neurological- denies acute dysarthria, dysphagia, change in vision Psychiatry- denies depression or SI or HI Skin- denies acute rash or purpura Allergies: Coded Allergies: Penicillins (Verified Allergy, Unknown, 01/05/24) Exam Vital Signs Vital Signs Date Time Temp Pulse Resp B/P (MAP) Pulse Ox O2 Delivery O2 Flow Rate FiO2 10/31/24 01:39 63 10/31/24 01:00 14 140/69 (92) 100 10/30/24 22:50 98.7 98.7 Exam General examination- awake, alert, oriented HEENT- PEERLA, no acute nasal discharge Cardiovascular- S1-S2 audible, rate and rhythm regular, no murmur Respiratory- CTAB, no wheeze or rhonchi Gastrointestinal-nontender, bowel sound+. Nondistended Musculoskeletal-no acute joint swelling or tenderness or redness Lower extremity- right knee swollen+ Neurological- cranial nerves intact, no acute dysarthria or dysphagia Psychiatry- denies depression or SI or HI Skin- no acute rash or purpura Labs/Xrays Labs Test 10/31/24 00:40 10/31/24 00:22 10/30/24 23:37 Range/Units Troponin I High Sensitivity 496 *H </=34 ng/L White Blood Count 14.1 H 4.4-10.8 10^3/uL Red Blood Count 5.12 4.0-5.20 10^6/uL Hemoglobin 13.4 12.2-16.2 g/dL Hematocrit 42.2 36.0-46.0 % Mean Corpuscular Volume 82.4 80.0-100.0 fL Mean Corpuscular Hemoglobin 26.2 L 28.0-32.0 pg Mean Corpuscular Hemoglobin Concent 31.8 L 32.0-36.0 g/dL Red Cell Distribution Width 17.0 H 11.8-14.3 % Platelet Count 212 140-450 10^3/uL Mean Platelet Volume 11.6 H 6.9-10.8 fL Neutrophils (%) (Auto) 69.9 37.0-80.0 % Lymphocytes (%) (Auto) 20.8 10.0-50.0 % Monocytes (%) (Auto) 6.7 0.0-12.0 % Eosinophils (%) (Auto) 1.5 0.0-7.0 % Basophils (%) (Auto) 1.1 0.0-2.0 % Neutrophils # (Auto) 9.8 H 1.6-8.6 10 ^3/uL Lymphocytes # (Auto) 2.9 0.4-5.4 10 ^3/uL Monocytes # (Auto) 0.9 0-1.3 10 ^3/uL Eosinophils # (Auto) 0.2 0-0.8 10 ^3/uL Basophils # (Auto) 0.2 0-0.2 10 ^3/uL Nucleated Red Blood Cells 0.0 % Platelet Estimate Adequate Large Platelets Few Ovalocytes Many Sodium Level 139 136-145 mmol/L Potassium Level 4.0 3.5-5.1 mmol/L Chloride Level 108 H 98-107 mmol/L Carbon Dioxide Level 24 20-31 mmol/L Anion Gap 7 5-15 Blood Urea Nitrogen 8 L 9-23 mg/dL Creatinine 1.04 H 0.550-1.02 mg/dL Glomerular Filtration Rate Calc 66 >90 mL/min BUN/Creatinine Ratio 7.7 L 10.0-20.0 Serum Glucose 87 74-106 mg/dL Calcium Level 10.1 8.7-10.4 mg/dL SEPSIS Sepsis Screen Date sepsis recognized/suspect: Oct 30, 2024 Time Sepsis recognized/suspect: 2249 Recent Procedure: No On Antibiotic Therapy: No Respiratory Rate >20: No Heart Rate >90: Yes Temp<36 C (96.8 F) or >38.3 C: No SBP <90 or MAP <65 mmHG: No New Acute Mental Status Change: No Is the patient on CPAP, BIPAP,: No Physician Orders R Knee 3v Xray (10/30/24 23:03) Electrocardigram (10/30/24 23:03) Rt Lower Dvt (10/30/24 23:03) Head Without Contrast (10/30/24 23:03) Interactive Account Manager (10/30/24 ) Blood Pressure (10/30/24 ) Pulse Oximetry (10/30/24 ) Apply Knee Immobilizer (10/30/24 23:34) Troponin-I Hs (10/31/24 02:20) Chest Xray 1 View (10/31/24 00:31) Heplock Iv (10/31/24 ) Vital Signs Date Time Temp Pulse Resp B/P (MAP) Pulse Ox O2 Delivery O2 Flow Rate FiO2 10/31/24 01:39 63 10/31/24 01:00 65 14 140/69 (92) 100 10/31/24 00:36 80 17 150/99 (116) 100 10/31/24 00:19 150/99 10/30/24 23:19 182/121 10/30/24 22:50 98.7 98 20 213/143 (166) 99 98.7 Laboratory Tests Test 10/31/24 00:22 White Blood Count 14.1 10^3/uL (4.4-10.8) H Medications Medications Dose Ordered Sig/Dee Route Start Time Stop Time Status Last Admin Dose Admin Acetaminophen/ Hydrocodone Bitart 1 tab ONCE ONCE PO 10/30/24 23:15 10/30/24 23:16 DC 10/30/24 23:20 1 TAB Aspirin 325 mg ONCE ONCE PO 10/31/24 00:15 10/31/24 00:16 DC 10/31/24 00:37 325 MG Ceftriaxone Sodium 50 ml @ 100 mls/hr ONCE ONCE IV 10/31/24 00:45 10/31/24 01:14 DC 10/31/24 01:17 100 MLS/HR Clonidine HCl 0.2 mg ONCE ONCE PO 10/30/24 23:15 10/30/24 23:16 DC 10/30/24 23:19 0.2 MG Ondansetron HCl 4 mg ONCE ONCE PO 10/30/24 23:15 10/30/24 23:16 DC 10/30/24 23:19 4 MG Assessment/Plan Assessment/Plan Assessment and plan # hypertensive emergency # hypertensive heart failure -EKG sinus rhythm, no acute ST elevation -initial BP 213/143 -troponin I 590>496>456 -BNP 651 -continue Lasix 20 mg IV b.i.d. -continue losartan 25 mg p.o. daily -pending echo 2D -pending cardiology consult # acute chest pain, rule out acute coronary syndrome # non STEMI likely type 2 likely due to demand lead ischemia -troponin I 590 -continue aspirin 81 mg p.o. daily -continue atorvastatin 40 mg p.o. q.h.s. -pending echo 2D -pending cardiology consult # Right knee pain likely due to ruptured Fagan's cyst, ruled out DVT -continue pain medication as prescribed -continue conservative management # asthma, no acute exacerbation -nebulization PRN #Obesity -patient was counseled about the effect of obesity on health, healthy diet, physical activity as tolerated, weight reduction Diet- Cardiac diet Goals of care, Code status full code ; discussed with >15 minutes PUD prophylaxis: Pantoprazole DVT prophylaxis: Lovenox Plan discussed with Dr. Colon , nursing staff, Total time spent on patient evaluation, chart review, assessment and plan, discussion discussion >35 minutes Plan discussed with: Patient, Other (RN) Date of Service: Oct 31, 2024 Billing Provider: JADA COLON MD Common Visit Codes: [id number]-[id number] INP/OBS CARE (HIGH) Secondary Visit Codes: [id number]-[id number] CARE PLAN 30 MINUTES QUENTIN MOSER RESIDENT Oct 31, 2024 01:59
[2024-10-31] MEDS ORDERED: MORPHINE SULFATE INJ 2 MG/ml SYRG IV PRN (02:00)
[2024-10-31] MEDS ORDERED: NITROGLYCERIN 0.4 MG SL TAB SL PRN (02:00)
[2024-10-31 02:34] LABS: Alanine Aminotransferase 24 U/L (7-40); Albumin 4.3 g/dL (3.2-4.8); Alkaline Phosphatase 72 U/L (46-116); Bilirubin, Direct < 0.1 mg/dL (<0.3); Bilirubin, Total 0.3 mg/dL (0.2-1.0); Total Protein 7.1 g/dL (5.7-8.2)
[2024-10-31] MEDS: PANTOPRAZOLE 40 MG TAB PO ONE (02:43)
[2024-10-31] MEDS: ATORVASTATIN 20 MG TAB PO ONE (02:43)
--- NOTE | 2024-10-31 03:07 | DVH ---
CHEST RADIOGRAPH Indication: chest pain Technique: Single frontal view of the chest was obtained COMPARISON: XY CHEST XRAY 1 VIEW on DOS: 01/08/24, XY CHEST PORTABLE on DOS: 01/05/24 FINDINGS: Lines and Tubes: None Lungs: Clear. Mild right hemidiaphragmatic elevation. Pleura: No effusion. No pneumothorax. Cardiomediastinal contours: Cardiomegaly. Bones: Unremarkable IMPRESSION: 1. Cardiomegaly.
[2024-10-31] MEDS ORDERED: IPRATROPIUM BROM 0.5 MG/2.5ML INH SOL NEB PRN (04:00)
[2024-10-31] MEDS ORDERED: ALBUTEROL SULF 2.5 MG/0.5ML(0.5%) NEB SOLN NEB PRN (04:00)
[2024-10-31] MEDS: ENOXAPARIN SOD 40 MG/0.4 ML SYRINGE SC ONE (04:15)
[2024-10-31] MEDS ORDERED: IPRATROPIUM BROM 0.5 MG/2.5ML INH SOL NEB SCH (06:00)
[2024-10-31] MEDS: FUROSEMIDE 20 MG/2 ML VIAL IV SCH (06:15)
--- NOTE | 2024-10-31 07:20 | ECG ---
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
[2024-10-31 07:58] LABS: Hematocrit 39.1 % (36.0-46.0); Hemoglobin 12.4 g/dL (12.2-16.2); Mean Corpuscular Hemoglobin 26.4 pg (28.0-32.0); Mean Corpuscular Volume 83.4 fL (80.0-100.0); Nucleated Red Blood Cells % 0.2 %
[2024-10-31 08:05] LABS: Alanine Aminotransferase 25 U/L (7-40); Albumin 3.7 g/dL (3.2-4.8); Alkaline Phosphatase 68 U/L (46-116); Anion Gap 6 (5-15); BUN/Creatinine Ratio 9.8 (10.0-20.0); Blood Urea Nitrogen 11 mg/dL (9-23); Calcium 9.9 mg/dL (8.7-10.4); Carbon Dioxide 25 mmol/L (20-31); Glucose 94 mg/dL (74-106); Potassium 3.7 mmol/L (3.5-5.1); Sodium 140 mmol/L (136-145); Total Protein 6.3 g/dL (5.7-8.2)
[2024-10-31 08:06] LABS: Bilirubin, Total 0.2 mg/dL (0.2-1.0); Chloride 109 mmol/L (98-107)
[2024-10-31 08:25] LABS: Ovalocytes MANY
[2024-10-31] MEDS ORDERED: MORPHINE SULFATE INJ 2 MG/ml SYRG IV ONE (09:30)
[2024-10-31] MEDS ORDERED: ERGOCALCIFEROL 50,000 UNIT(1.25MG) CAP PO SCH (10:00)
[2024-10-31] MEDS ORDERED: ONDANSETRON HCL 4 MG/2 ML VIAL IV ONE (10:00)
[2024-10-31] MEDS ORDERED: FUROSEMIDE 20 MG/2 ML VIAL IV SCH (10:00)
[2024-10-31] MEDS: GABAPENTIN 300 MG CAP PO SCH (10:08)
[2024-10-31] MEDS: MORPHINE SULFATE INJ 2 MG/ml SYRG IV ONE (10:08)
[2024-10-31] MEDS: ISOSORBIDE MONONITRATE ER 60 MG TAB PO SCH (10:08)
[2024-10-31] MEDS: ONDANSETRON HCL 4 MG/2 ML VIAL IV ONE (10:08)
[2024-10-31] MEDS: hydroCHLOROthiazide 25 MG TAB PO SCH (10:09)
[2024-10-31] MEDS: LOSARTAN POTASSIUM 25 MG TAB PO SCH (10:10)
[2024-10-31] MEDS: CHOLECALCIFEROL (VITD3) 1,000UNIT=25mCg TAB PO SCH (10:10)
[2024-10-31] MEDS: Fenofibrate 160MG TABLET PO SCH (10:58)
[2024-10-31 11:55] LABS: Urine Protein, UAD Negative (Negative)
[2024-10-31 12:15] LABS: Amphetamine Screen, Urine Neg (NEGATIVE); Barbiturate Scree,Urine Neg (NEGATIVE); Benzodiazephine Screen, Urine Neg (NEGATIVE); Cannabinoid Screen, Urine Neg (NEGATIVE); Cocaine Screen, Urine Pos (NEGATIVE); Opiate Scree,Urine Neg (NEGATIVE); Phencyclidine Screen, Urine Neg (NEGATIVE)
--- NOTE | 2024-10-31 13:03 | DVHCONRES ---
Date Seen: Oct 31, 2024 Resident Creating Document: DEX TA RESDIENT History of Present Illness This is a 49-year-old female with past medical history of hypertension, heart failure (mildly reduced ejection fraction 40-45%), Prinzmetal angina, asthma and current smoker came to the hospital due to right knee pain. She has right knee chronic pain due to traumatic injury, has worsened since 1 week. She also reports an episode of chest pain the night before admission which lasted for 1 hours. She describes as a substernal heaviness, radiated to the left shoulder and neck, 10/25, associated with mild shortness of breaths and palpitation. She denies fever, cough, or any recent sick contact/chest trauma. PMHx: Hypertension, heart failure (mildly reduced ejection fraction 40-45%), P rinzmetal angina, asthma and current smoker PSHx: Knee surgery Social history: Current smoker Home medication: Amlodipine, fenofibrate, gabapentin, hydrochlorothiazide and nitroglycerin p.r.n. Allergic history: Penicillins Patient seen and examined at the bedside. Patient is still complaining of right knee pain. Patient is with the active chest pain. Family History: Chronic obstructive pulmonary disease G8 MOTHER Hypertension G8 MOTHER Allergies: Coded Allergies: Penicillins (Verified Allergy, Unknown, 01/05/24) Home Meds Active Scripts Nitroglycerin (Nitrolingual) 0.4 Mg/[place] Spr, 0.4 MG TL 6XD PRN for 30 Days, #30 SPRAY Prov:JAIRON HERNADEZ RESIDENT 01/10/24 Isosorbide Mononitrate (Isosorbide Mononitrate Er) 30 Mg Tab, 30 MG PO DAILY for 30 Days, #30 TAB 1 Refill Prov:JAIRON HERNADEZ RESIDENT 01/10/24 Reported Medications Cholecalciferol (Vitamin D3) 5,000 Unit Chw, 5000 UNIT PO DAILY, TAB.CHEW 01/06/24 Gabapentin (Gabapentin) 300 Mg Cap, 300 MG PO DAILY, MG 01/06/24 Clonidine Hydrochloride (Clonidine Hcl) 0.1 Mg Tab, 0.1 MG PO Q6HP for Systolic greater than 160, MG 01/06/24 Diclofenac Sodium (Diclofenac Sodium Dr) 50 Mg Tab, 50 MG PO BID, TAB 01/06/24 Sumatriptan Succinate (Sumatriptan Succinate) 100 Mg Tab, 100 MG PO DAILY, MG 01/06/24 Albuterol Sulfate (Albuterol Sulfate) 0.083 % Neb, 0.083 % IN TID, INH 01/06/24 Fenofibrate (Fenofibrate) 160 Mg Tab, 1 TAB PO DAILY 01/05/24 Amlodipine Besylate (Amlodipine Besylate) 10 Mg Tab, 1 TAB PO DAILY 01/05/24 Vit W/ Ferrous Fumara () 1 Tab Tab, 1 TAB OR DAILYP, TAB 06/25/13 Hydrochlorothiazide (Hydrochlorothiazide) 12.5 Mg Tab, 12.5 MG OR DAILY 12/31/09 Ipratropium [place] Hfa (Atrovent Hfa) 17 Mcg Aer, 17 MCG IN 12/31/09 Current Medications Current Medications Medications (Trade) Dose Ordered Sig/Dee Route PRN Reason Start Time Stop Time Status Last Admin Nitroglycerin (Ntrostat Sublingual) 0.4 mg Q5MINP PRN SL FOR CHEST PAIN 10/31/24 02:00 Morphine Sulfate 2 mg Q30M PRN IV FOR CHEST PAIN 10/31/24 02:00 Aspirin 81 mg DAILY PO 10/31/24 10:00 10/31/24 10:09 Atorvastatin Calcium (Lipitor) 40 mg HS PO 10/31/24 22:00 Pantoprazole Sodium (Protonix Tablet) 40 mg DAILY@0600 PO 11/01/24 06:00 Clonidine HCl (Catapres Tablet) 0.1 mg Q6HP PRN PO SBP>160 10/31/24 06:00 10/31/24 03:41 DC Gabapentin (Neurontin Capsule) 300 mg DAILY PO 10/31/24 10:00 10/31/24 10:08 Amlodipine Besylate (Norvasc Tablet) 10 mg DAILY PO 10/31/24 10:00 10/31/24 03:41 DC Cholecalciferol (Vitamin D3 Tablet) 5,000 unit DAILY PO 10/31/24 10:00 10/31/24 10:10 Patient Own Medication 1 tab DAILY PO 10/31/24 10:00 Hydrochlorothiazide (hydroCHLOROthiazide TABLET) 12.5 mg DAILY PO 10/31/24 10:00 10/31/24 10:09 Isosorbide Mononitrate (Imdur Er Tablet) 30 mg DAILY PO 10/31/24 10:00 10/31/24 10:08 Furosemide (Lasix Injection) 20 mg DAILY IV 10/31/24 10:00 UNV Furosemide (Lasix Injection) 20 mg BIDD IV 10/31/24 06:00 10/31/24 06:15 Labetalol HCl (Labetalol HCl) 10 mg Q2HPRN PRN IV SBP>150 10/31/24 03:45 Losartan Potassium (Cozaar Tablet) 25 mg DAILY PO 10/31/24 10:00 10/31/24 10:10 Ergocalciferol (Vitamin D 50,000 Unit) 50,000 unit Q7D PO 10/31/24 10:00 Hold Albuterol (Ventolin Medneb) 2.5 mg Q6HPRN PRN NEB SHORTNESS OF BREATH 10/31/24 04:00 Ipratropium [place] (Atrovent Medneb) 0.5 mg Q6HR NEB 10/31/24 06:00 10/31/24 04:01 DC Enoxaparin Sodium (Lovenox) 40 mg DAILY SC 11/01/24 10:00 Ipratropium [place] (Atrovent Medneb) 0.5 mg Q6HPRN PRN NEB SHORTNESS OF BREATH 10/31/24 04:00 Morphine Sulfate 1 mg Q6HP PRN IV SEVERE PAIN (7-10 PAIN SCALE) 10/31/24 11:45 Acetaminophen/ Hydrocodone Bitart ([place] 5/325MG Tab) 1 tab Q8HPRN PRN PO MODERATE PAIN (4-6 PAIN SCALE) 10/31/24 11:45 Vital Signs Vital Signs Date Time Temp Pulse Resp B/P (MAP) Pulse Ox O2 Delivery O2 Flow Rate FiO2 10/31/24 12:00 98.3 57 18 156/76 (102) 93 98.3 10/31/24 07:30 Room Air* 0 21 Physical Exam General Appearance: Alert, Oriented X3, Cooperative, No acute distress HEENT: Atraumatic, PERRLA, EOMI, Mucous membrane moist/pink Respiratory: Clear to auscultation, Normal air movement Cardiovascular: Regular rate, Normal S1, Normal S2, No murmurs, no chest wall tenderness Abdominal: Normal bowel sounds, Soft, No tenderness, No hepatospenomegaly, No masses Extremities: Decreased range of motion of right knee due to pain Skin: No rashes, No breakdown, No significant lesion Neuro: Normal gait, Normal speech, Strength at 5/5 X4 ext, Normal tone, Sensation intact, Cranial nerves 3-12 NL, Reflexes 2+ Psych/Mental Status: Mental status NL, Mood NL Labs/Diagnostic Data Labs Test 10/31/24 11:30 10/31/24 09:06 10/31/24 07:35 10/31/24 02:30 Range/Units Urine Color Light-yellow Yellow Urine Clarity Clear Clear Urine pH 5.5 5.0-9.0 Urine Specific [place] 1.014 1.001-1.035 Urine Protein Negative Negative Urine Ketones Negative Negative Urine Blood Negative Negative /uL Urine Nitrite Negative Negative Urine Bilirubin Negative Negative Urine Urobilinogen Normal Negative mg/dL Urine Leukocyte Esterase Negative Negative /uL Urine RBC 1 0 - 4 /hpf Urine Microscopic WBC 1 0-5 /HPF Urine Squamous Epithelial Cells Few <5 /hpf Urine Bacteria None seen None Seen /hpf Urine Mucus Few None Seen Urine Glucose Normal Normal mg/dL Urine Opiates Screen Neg NEGATIVE Urine Fentanyl Screen Neg NEGATIVE Urine Barbiturates Screen Neg NEGATIVE Urine Phencyclidine Screen Neg NEGATIVE Urine Amphetamines Screen Neg NEGATIVE Urine Benzodiazepines Screen Neg NEGATIVE Urine Cocaine Screen Pos NEGATIVE Urine Cannabinoids Screen Neg NEGATIVE Lactic Acid Level 1.3 0.4-2.0 mmol/L White Blood Count 9.4 # 4.4-10.8 10^3/uL Red Blood Count 4.69 4.0-5.20 10^6/uL Hemoglobin 12.4 12.2-16.2 g/dL Hematocrit 39.1 36.0-46.0 % Mean Corpuscular Volume 83.4 80.0-100.0 fL Mean Corpuscular Hemoglobin 26.4 L 28.0-32.0 pg Mean Corpuscular Hemoglobin Concent 31.6 L 32.0-36.0 g/dL Red Cell Distribution Width 16.9 H 11.8-14.3 % Platelet Count 176 140-450 10^3/uL Mean Platelet Volume 11.8 H 6.9-10.8 fL Neutrophils (%) (Auto) 68.5 37.0-80.0 % Lymphocytes (%) (Auto) 21.8 10.0-50.0 % Monocytes (%) (Auto) 6.9 0.0-12.0 % Eosinophils (%) (Auto) 2.1 0.0-7.0 % Basophils (%) (Auto) 0.7 0.0-2.0 % Neutrophils # (Auto) 6.4 1.6-8.6 10 ^3/uL Lymphocytes # (Auto) 2.0 0.4-5.4 10 ^3/uL Monocytes # (Auto) 0.6 0-1.3 10 ^3/uL Eosinophils # (Auto) 0.2 0-0.8 10 ^3/uL Basophils # (Auto) 0.1 0-0.2 10 ^3/uL Nucleated Red Blood Cells 0.2 % Platelet Estimate Adequate Large Platelets Few Ovalocytes Many Sodium Level 140 136-145 mmol/L Potassium Level 3.7 3.5-5.1 mmol/L Chloride Level 109 H 98-107 mmol/L Carbon Dioxide Level 25 20-31 mmol/L Anion Gap 6 5-15 Blood Urea Nitrogen 11 9-23 mg/dL Creatinine 1.12 H 0.550-1.02 mg/dL Glomerular Filtration Rate Calc 61 >90 mL/min BUN/Creatinine Ratio 9.8 L 10.0-20.0 Serum Glucose 94 74-106 mg/dL Calcium Level 9.9 8.7-10.4 mg/dL Magnesium Level 1.9 1.6-2.6 mg/dL Total Bilirubin 0.2 0.2-1.0 mg/dL Aspartate Amino Transferase (AST) 29 13-40 U/L Alanine Aminotransferase (ALT) 25 7-40 U/L Alkaline Phosphatase 68 46-116 U/L Total Protein 6.3 5.7-8.2 g/dL Albumin 3.7 3.2-4.8 g/dL Troponin I High Sensitivity 456 *H </=34 ng/L Test 10/31/24 00:40 10/31/24 00:20 10/30/24 23:37 Range/Units Direct Bilirubin < 0.1 <0.3 mg/dL Vitamin B12 Level 326 211-911 pg/mL Vitamin D 25-Hydroxy 25.7 L 30.0-100 ng/mL Folic Acid 21.17 >5.38 ng/mL Plasma/Serum Blood Alcohol 3.0 <10 mg/dL Hemoglobin A1c 4.7 <5.7 % A1C B-Type Natriuretic Peptide 651.68 0-100 pg/mL Thyroid Stimulating Hormone (TSH) 1.69 0.55-4.78 uIU/mL Assessment NSTEMI, likely type 2, Prinzmetal angina/vasospasm Hypertensive emergency, likely due to cocaine use disorder Acute on chronic systolic heart failure Dilated cardiomyopathy, likely due to cocaine use disorder Current smoker Asthma Morbid obesity Traumatic knee injury * EKGs shows normal sinus rhythm with T-wave inversion on lateral leads * Trop I is raised at 450s stable, BNP is raised at 650s * Chest x-ray shows cardiomegaly Plan/recommendation (Case discussed with Dr. Lion) * Check echocardiogram * Aspirin, atorvastatin * Amlodipine 10 mg daily, Imdur (isosorbide mononitrate) 30 mg daily, Lasix 20 mg daily and Jardiance 10 mg daily and spironolactone 25 mg daily * Consulted patient for smoking cessation * Rest of plan per primary team * We sign of the patient Thank you for giving us the opportunity to take care of your patient. Please call back if you have any question/concern. Plan discussed with: Patient, Other (RN) DEX TA RESDIENT Oct 31, 2024 13:03
[2024-10-31] MEDS: SPIRONOLACTONE 25 MG TAB PO ONE (14:34)
--- NOTE | 2024-10-31 16:25 | DVHPNRES ---
Progress Note Date Seen: Oct 31, 2024 Resident Creating Document: DANIELEJIA RESIDENT Medical Necessity Reason Pt with a Central, PICC or Fol: No Subjective Review of Systems History of Present Illness Patient is 49 years old female with past medical history of hypertension,HFmrEFm, 40-45%, asthma, sciatica came with a complaint of right knee pain. As per patient he has chronic right knee pain which got worse on most 1 week before. As per patient when she was walking 1 week before she heard right knee "popping in and out of place". Right knee pain was 10/10 at the beginning, gradual, constant, sharp, aggravated with movement, relieved with some pain medication. Patient also reported having chest pain started last night around 7:30 p.m., gradual onset, 8/10, central, radiating to the left side of neck, associated with the shortness of breaths, no aggravating or relieving factor. On further inquiry patient also reported throbbing headache, 10/10, relieved with the pain medication. Patient denied any fever, sweating, nausea or vomiting, diarrhea, dysarthria or change in vision. On arrival patient's blood pressure was 213/143, was 98. EKG sinus rhythm, no acute ST elevation or depression. Initial lab workup revealed troponin I 590> 496> 456, BNP 651, WBC 14.1, RDW 17.0. Doppler study of the right lower extremity revealed No evidence of deep venous thrombosis. Fagan's cyst in the right popliteal fossa, likely partially ruptured. X-ray of the right knee- Chondrocalcinosis within the medial and lateral tibiofemoral compartments. Moderate suprapatellar effusion. CT head negative for acute intracranial abnormality. Past Medical History hypertension,HFmrEF, history of RCA spasm relieved by nitroglycerin in the past, EF 40-45%, asthma, sciatica Past Surgical History Bilateral tubal ligation, , right knee ligament tear repair Past Social History Smoker, < 1 pack per day, active cocaine use, occasional alcohol use, lives with kids 10/31 interval events: Patient complaints of right-sided knee pain 710. Her shortness of breath and chest pain improved since yesterday. She denies any fever, abdominal pain, nausea, vomiting or any other complaints at this time. Review of systems The patient was seen and examined at the bedside. Overnight events were reviewed. ROS is as above. Rest of the ROS is negative. Objective vital signs Vital Sign Date Time Temp Pulse Resp B/P (MAP) Pulse Ox O2 Delivery O2 Flow Rate FiO2 10/31/24 14:00 65 18 147/83 (104) 93 10/31/24 12:00 98.3 98.3 10/31/24 10:00 Room Air* 0 21 medications Current Medications Medications Dose Ordered Sig/Dee Route Start Time Stop Time Status Last Admin Dose Admin Nitroglycerin 0.4 mg Q5MINP PRN SL 10/31/24 02:00 Morphine Sulfate 2 mg Q30M PRN IV 10/31/24 02:00 Aspirin 81 mg DAILY PO 10/31/24 10:00 10/31/24 10:09 81 MG Atorvastatin Calcium 40 mg HS PO 10/31/24 22:00 Pantoprazole Sodium 40 mg DAILY@0600 PO 11/01/24 06:00 Gabapentin 300 mg DAILY PO 10/31/24 10:00 10/31/24 10:08 300 MG Cholecalciferol 5,000 unit DAILY PO 10/31/24 10:00 10/31/24 10:10 5,000 UNIT Hydrochlorothiazide 12.5 mg DAILY PO 10/31/24 10:00 10/31/24 10:09 12.5 MG Isosorbide Mononitrate 30 mg DAILY PO 10/31/24 10:00 10/31/24 10:08 30 MG Furosemide 20 mg DAILY IV 10/31/24 10:00 UNV Furosemide 20 mg BIDD IV 10/31/24 06:00 10/31/24 06:15 20 MG Labetalol HCl 10 mg Q2HPRN PRN IV 10/31/24 03:45 Losartan Potassium 25 mg DAILY PO 10/31/24 10:00 10/31/24 10:10 25 MG Ergocalciferol 50,000 unit Q7D PO 10/31/24 10:00 Hold Albuterol 2.5 mg Q6HPRN PRN NEB 10/31/24 04:00 Enoxaparin Sodium 40 mg DAILY SC 11/01/24 10:00 Ipratropium [place] 0.5 mg Q6HPRN PRN NEB 10/31/24 04:00 Morphine Sulfate 1 mg Q6HP PRN IV 10/31/24 11:45 Acetaminophen/ Hydrocodone Bitart 1 tab Q8HPRN PRN PO 10/31/24 11:45 Amlodipine Besylate 10 mg DAILY PO 11/01/24 10:00 Empaglifozin 10 mg DAILY PO 11/01/24 10:00 Spironolactone 25 mg DAILY PO 11/01/24 10:00 Examination Pt is lying on bed General Appearance: Alert, Oriented X3, Cooperative, Mild distress HEENT: Atraumatic, Mucous membranes moist/pink Respiratory: Clear to auscultation, Normal air movement, No added sounds Cardiovascular: Regular rate, Normal S1, Normal S2, No murmurs Abdominal/ : Active bowel sounds, Soft, no distention, no tenderness Extremities: No edema, Normal pulses, tenderness in right popliteal and knee area. Skin: No Significant rash, except past surgical scars Neuro: Normal speech, sensorimotor deficits none Psych/Mental Status: Mental status NL, Mood NL Nurse was there as animal technician during examination laboratory and microbiology Laboratory Tests 10/31/24 07:35 Test 10/31/24 07:35 Range/Units Serum Glucose 94 74-106 mg/dL Labs and/or images reviewed: Labs reviewed by me, Image(s) reviewed by me Problem List/Assessment/Plan Problem List/Assessment/Plan # Right knee pain likely due to ruptured Fagan's cyst, ruled out DVT -[place] and morphine p.r.n. -continue conservative management -knee x-ray showing leakage of cyst -follow up with ortho as outpatient # metabolic syndrome # Acute on chronic systolic heart failure # Dilated cardiomyopathy, due to cocaine # hypertensive emergency, due to cocaine induced # hypertensive heart failure # NSTEMI, likely type 2, Prinzmetal angina/vasospasm likely due to above # Acute chest pain, ruled out ACS # cocaine/tobacco use disorder-UDS positive, counseled regarding cessation -EKG sinus rhythm, no acute ST elevation -initial BP 213/143 -troponin I 590>496>456 -BNP 651 -continue Lasix 20 mg IV b.i.d. -continue losartan 25 mg p.o. daily -Chest x-ray shows cardiomegaly -continue aspirin 81 mg p.o. and atorvastatin 40 mg p.o. q.h.s. -Echo 2D -Cardiology consult -GDMT as tolerated -Amlodipine 10 mg daily, Imdur (isosorbide mononitrate) 30 mg daily, Lasix 20 mg daily and Jardiance 10 mg daily and spironolactone 25 mg daily # asthma, no acute exacerbation -nebulization PRN # Morbid Obesity with a BMI of 37.6 -patient was counseled about the effect of obesity on health, healthy diet, physical activity as tolerated, weight reduction Diet- Cardiac diet PUD prophylaxis: Pantoprazole DVT prophylaxis: Lovenox Goals of care discussed with patient for 20 minutes; full code Case discussed with Dr. Souza. Plan discussed with: Patient, Other (RN) My Orders My Orders Orders - JIA SANABRIA RESIDENT Procedure Category Date Status Time Blood Culture YEE 10/31/24 In Process 07:51 Urine Bacterial YEE 10/31/24 In Process Culture 07:51 Morphine Sulfate PHA 10/31/24 In Process Injection 11:45 Hydrocodone-Acet PHA 10/31/24 In Process 5/325mg Tab ([place] 11:45 Addendum Addendum Addendum I was physically present for the king portions of the service provided to patient by THE RESIDENT. I have reviewed the documentation, discussed the case with resident and agree with the resident's documentation except as noted. Also the patient's clinical case was discussed with the patient's nurse. This medical document was created using an electronic medical record system with computerized dictation system. Although this document has been carefully reviewed, there might still be some phonetic and typographical errors. These areas are purely typographical due to imperfections of the software programs, and do not reflect any compromise in the patient's medical care. Late signature. Date of Service: Oct 31, 2024 Billing Provider: DEMAR SOUZA MD Common Visit Codes: 61398-[id number] INP/OBS CARE(HIGH) Secondary Visit Codes: 03732-AAYKF CHNG SMOKING >10MIN (22 minutes on cocaine/tobacco use cessation; 12 minutes for tobacco use cessation), 54344- ADVANCED CARE PLAN 30 MINUTES (20 minutes) JIA SANABRIA Oct 31, 2024 16:25 ANA RAPP RESIDENT Oct 31, 2024 19:05 DEMAR SOUZA MD Nov 03, 2024 05:57
[2024-10-31] MEDS: HYDROcodone-ACET 5/325MG TAB PO PRN (18:04)
[2024-10-31] MEDS: MORPHINE SULFATE INJ 2 MG/ml SYRG IV PRN (20:40)
[2024-10-31] MEDS: ATORVASTATIN 20 MG TAB PO SCH (21:33)
[2024-10-31] MEDS: MELATONIN 5 MG TAB PO ONE (22:57)
[2024-11-01] VITALS (8 sets, daily range): BP systolic 150–166; BP diastolic 75–110; PULSE 62–94; RESP 16–22; TEMP 97.9–98; O2SAT 96–98
[2024-11-01] MEDS: HYDROcodone-ACET 10/325MG TAB PO ONE (04:19)
[2024-11-01] MEDS: PANTOPRAZOLE 40 MG TAB PO SCH (05:49)
[2024-11-01] MEDS: LABETALOL HCL 20 MG/4 ML VL IV PRN (05:49)
[2024-11-01 07:23] LABS: Alanine Aminotransferase 17 U/L (7-40); Albumin 3.6 g/dL (3.2-4.8); Alkaline Phosphatase 62 U/L (46-116); BUN/Creatinine Ratio 11.6 (10.0-20.0); Blood Urea Nitrogen 11 mg/dL (9-23); Calcium 10.1 mg/dL (8.7-10.4); Chloride 107 mmol/L (98-107); Glucose 87 mg/dL (74-106); Potassium 3.9 mmol/L (3.5-5.1); Sodium 138 mmol/L (136-145); Total Protein 6.0 g/dL (5.7-8.2)
[2024-11-01 07:24] LABS: Anion Gap 7 (5-15)
[2024-11-01 07:25] LABS: Bilirubin, Total 0.3 mg/dL (0.2-1.0); Carbon Dioxide 24 mmol/L (20-31); Nucleated Red Blood Cells % 0.0 %
[2024-11-01 07:28] LABS: Hematocrit 36.1 % (36.0-46.0); Hemoglobin 11.6 g/dL (12.2-16.2); Mean Corpuscular Hemoglobin 26.6 pg (28.0-32.0); Mean Corpuscular Volume 82.6 fL (80.0-100.0)
[2024-11-01] MEDS: KETOROLAC TROMETH 30 MG/ML 1ML VIAL IV ONE (08:34)
[2024-11-01] MEDS: ENOXAPARIN SOD 40 MG/0.4 ML SYRINGE SC SCH (08:36)
[2024-11-01] MEDS: EMPAGLIFLOZIN 10 MG TAB PO SCH (08:37)
[2024-11-01] MEDS: SPIRONOLACTONE 25 MG TAB PO SCH (08:38)
[2024-11-01 08:43] LABS: Ovalocytes MANY
[2024-11-01] MEDS: MORPHINE SULFATE INJ 2 MG/ml SYRG IV ONE (11:14)
[2024-11-01] MEDS ORDERED: LOS25T PO (11:47)
[2024-11-01] MEDS ORDERED: ATOR20TA50 PO (11:47)
[2024-11-01] MEDS ORDERED: SPIR25TA PO (11:47)
[2024-11-01] MEDS ORDERED: FURO1TAB31 PO (11:47)
[2024-11-01] MEDS ORDERED: AML5T PO (11:47)
[2024-11-01] MEDS ORDERED: ASPI-325 PO (11:47)
[2024-11-01] MEDS ORDERED: IBUP-1454 PO (11:48)
--- NOTE | 2024-11-01 17:04 | DVHDSRES ---
Discharge Summary Date of Admission Resident Creating Document: JIA SANABRIA Oct 31, 2024 at 01:57 Date of Discharge: Nov 01, 2024 Admitting Diagnosis Knee pain//SOB//Chest pain Labs/Diagnostic Data: Laboratory Results Test 11/01/24 05:50 10/31/24 11:30 10/31/24 09:06 10/31/24 07:35 White Blood Count 9.4 10^3/uL (4.4-10.8) Red Blood Count 4.37 10^6/uL (4.0-5.20) Hemoglobin 11.6 g/dL (12.2-16.2) Hematocrit 36.1 % (36.0-46.0) Mean Corpuscular Volume 82.6 fL (80.0-100.0) Mean Corpuscular Hemoglobin 26.6 pg (28.0-32.0) Mean Corpuscular Hemoglobin Concent 32.2 g/dL (32.0-36.0) Red Cell Distribution Width 16.6 % (11.8-14.3) Platelet Count 177 10^3/uL (140-450) Mean Platelet Volume 12.4 fL (6.9-10.8) Neutrophils (%) (Auto) 71.8 % (37.0-80.0) Lymphocytes (%) (Auto) 19.6 % (10.0-50.0) Monocytes (%) (Auto) 6.2 % (0.0-12.0) Eosinophils (%) (Auto) 2.0 % (0.0-7.0) Basophils (%) (Auto) 0.4 % (0.0-2.0) Neutrophils # (Auto) 6.8 10 ^3/uL (1.6-8.6) Lymphocytes # (Auto) 1.9 10 ^3/uL (0.4-5.4) Monocytes # (Auto) 0.6 10 ^3/uL (0-1.3) Eosinophils # (Auto) 0.2 10 ^3/uL (0-0.8) Basophils # (Auto) 0 10 ^3/uL (0-0.2) Nucleated Red Blood Cells 0.0 % Platelet Estimate [place] Large Platelets Few Ovalocytes Many Sodium Level 138 mmol/L (136-145) Potassium Level 3.9 mmol/L (3.5-5.1) Chloride Level 107 mmol/L (98-107) Carbon Dioxide Level 24 mmol/L (20-31) Anion Gap 7 (5-15) Blood Urea Nitrogen 11 mg/dL (9-23) Creatinine 0.95 mg/dL (0.550-1.02) Glomerular Filtration Rate Calc 74 mL/min (>90) BUN/Creatinine Ratio 11.6 (10.0-20.0) Serum Glucose 87 mg/dL (74-106) Calcium Level 10.1 mg/dL (8.7-10.4) Total Bilirubin 0.3 mg/dL (0.2-1.0) Aspartate Amino Transferase (AST) 13 U/L (13-40) Alanine Aminotransferase (ALT) 17 U/L (7-40) Alkaline Phosphatase 62 U/L (46-116) Total Protein 6.0 g/dL (5.7-8.2) Albumin 3.6 g/dL (3.2-4.8) Urine Color Light-yellow (Yellow) Urine Clarity Clear (Clear) Urine pH 5.5 (5.0-9.0) Urine Specific [place] 1.014 (1.001-1.035) Urine Protein Negative (Negative) Urine Ketones Negative (Negative) Urine Blood Negative /uL (Negative) Urine Nitrite Negative (Negative) Urine Bilirubin Negative (Negative) Urine Urobilinogen Normal mg/dL (Negative) Urine Leukocyte Esterase Negative /uL (Negative) Urine RBC 1 /hpf (0 - 4) Urine Microscopic WBC 1 /HPF (0-5) Urine Squamous Epithelial Cells Few /hpf (<5) Urine Bacteria None seen /hpf (None Seen) Urine Mucus Few (None Seen) Urine Glucose Normal mg/dL (Normal) Urine Opiates Screen Neg (NEGATIVE) Urine Fentanyl Screen Neg (NEGATIVE) Urine Barbiturates Screen Neg (NEGATIVE) Urine Phencyclidine Screen Neg (NEGATIVE) Urine Amphetamines Screen Neg (NEGATIVE) Urine Benzodiazepines Screen Neg (NEGATIVE) Urine Cocaine Screen Pos (NEGATIVE) Urine Cannabinoids Screen Neg (NEGATIVE) Lactic Acid Level 1.3 mmol/L (0.4-2.0) Magnesium Level 1.9 mg/dL (1.6-2.6) Test 10/31/24 02:30 10/31/24 00:40 10/31/24 00:20 10/30/24 23:37 Troponin I High Sensitivity 456 ng/L (</=34) Direct Bilirubin < 0.1 mg/dL (<0.3) Vitamin B12 Level 326 pg/mL (211-911) Vitamin D 25-Hydroxy 25.7 ng/mL (30.0-100) Folic Acid 21.17 ng/mL (>5.38) Plasma/Serum Blood Alcohol 3.0 mg/dL (<10) Hemoglobin A1c 4.7 % A1C (<5.7) B-Type Natriuretic Peptide 651.68 pg/mL (0-100) Thyroid Stimulating Hormone (TSH) 1.69 uIU/mL (0.55-4.78) Other Laboratory Tests 11/01/24 05:50 Brief Hx & Hospital Course: Patient is 49 years old female with past medical history of hypertension,HFmrEFm, 40-45%, asthma, sciatica came with a complaint of right knee pain. As per patient he has chronic right knee pain which got worse on most 1 week before. As per patient when she was walking 1 week before she heard right knee "popping in and out of place". Right knee pain was 10/10 at the beginning, gradual, constant, sharp, aggravated with movement, relieved with some pain medication. Patient also reported having chest pain started last night around 7:30 p.m., gradual onset, 8/10, central, radiating to the left side of neck, associated with the shortness of breaths, no aggravating or relieving factor. On further inquiry patient also reported throbbing headache, 10/10, relieved with the pain medication. Patient denied any fever, sweating, nausea or vomiting, diarrhea, dysarthria or change in vision. On arrival patient's blood pressure was 213/143, was 98. EKG sinus rhythm, no acute ST elevation or depression. Initial lab workup revealed troponin I 590> 496> 456, BNP 651, WBC 14.1, RDW 17.0. Doppler study of the right lower extremity revealed No evidence of deep venous thrombosis. Fagan's cyst in the right popliteal fossa, likely partially ruptured. X-ray of the right knee- Chondrocalcinosis within the medial and lateral tibiofemoral compartments. Moderate suprapatellar effusion. CT head negative for acute intracranial abnormality. Evaluation of the knee revealed a likely ruptured Fagan's cyst with DVT ruled out. Conservative management was initiated, including pain control with [place] and morphine as needed. A knee x-ray showed leakage of the cyst. During admission, the patient was also found to have acute on chronic systolic heart failure and dilated cardiomyopathy likely secondary to cocaine use. Clinical picture was further complicated by hypertensive emergency with a blood pressure of 213/143 and NSTEMI most likely type 2 in the setting of cocaine induced vasospasm or proximal angina. Cardiac workup revealed elevated BNP and troponin. EKG shows sinus rhythm without acute ST changes. Urine drug screen was positive for cocaine, and the patient was counseled extensively regarding cessation.m Cardiac management included IV diuresis with Lasix, initiation of GD MT was done as tolerated, and a cardiology consultation done. Medication continued included amlodipine, isosorbide mononitrate, furosemide, Jardiance, spironolactone, losartan, aspirin, atorvastatin. Chest x-ray revealed cardiomegaly. The patient condition was improved, hemodynamically stable for discharge. Patient was counseled regarding cessation for more than 17 minutes. The discharge plan was explained to the patient and patient verbalized understanding. The patient was stable during the time of discharge. Patient was advised to follow up with PCP and Cardiology within 1 week. Physical exam on the day of discharge: General Appearance: Alert, Oriented X3, Cooperative, Mild distress HEENT: Atraumatic, Mucous membranes moist/pink Respiratory: Clear to auscultation, Normal air movement, No added sounds Cardiovascular: Regular rate, Normal S1, Normal S2, No murmurs Abdominal/ : Active bowel sounds, Soft, no distention, no tenderness Extremities: No edema, Normal pulses, tenderness in right popliteal and knee area. 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 Souza Consults/Reason for consult Cardiology for chest pain Operations or Procedures CXR cardiomegaly EKG sinus rhythm no acute ST elevation Knee x-ray: There is no evidence of acute fracture or dislocation. Chondrocalcinosis within the medial and lateral tibiofemoral compartments. Moderate suprapatellar effusion. The soft tissues are otherwise unremarkable. Head CT: No acute intracranial abnormality. Extremity Venous study: No evidence of deep venous thrombosis. Fagan's cyst in the right popliteal fossa, likely partially ruptured. Condition at Discharge: Stable Final Diagnosis/Problems List #Ruputed Fagan's cyst of R knee; to follow up with ortho as outpatient; in brace # metabolic syndrome # Acute on chronic systolic heart failure # asthma, no acute exacerbation #NSTEMI, likely type 2, Prinzmetal angina/vasospasm likely due to above # hypertensive emergency,cocaine induced # Morbid Obesity with a BMI of 37.6 # Dilated cardiomyopathy, likely due to cocaine # hypertensive emergency, likely due to cocaine induced # hypertensive heart failure # NSTEMI, likely type 2, Prinzmetal angina/vasospasm likely due to above # Acute chest pain, ruled out ACS # cocaine/tobacco use disorder; counseled on cessation Discharge Disposition: Home Discharge Instruct/Medications Diet: Consistent carbohydrate, Cardiac 2g Na,low cholest Activity: No Restrictions, As Tolerated Follow Up/Referral: Follow-up with PCP in 1 week; cardiology; ortho Medications: As per EMR Scheduled Albuterol Sulfate (Albuterol Sulfate), 0.083 % IN TID, (Reported) Amlodipine Besylate (Amlodipine Besylate), 1 TAB PO DAILY, (Reported) Amlodipine Besylate (Norvasc Tablet), 10 MG PO DAILY Aspirin (Aspirin Low Dose), 81 MG PO DAILY Atorvastatin Calcium (Atorvastatin Calcium), 40 MG PO HS Cholecalciferol (Vitamin D3), 5,000 UNIT PO DAILY, (Reported) Clonidine Hydrochloride (Clonidine Hcl), 0.1 MG PO Q6HP, (Reported) Diclofenac Sodium (Diclofenac Sodium Dr), 50 MG PO BID, (Reported) Fenofibrate (Fenofibrate), 1 TAB PO DAILY, (Reported) Furosemide (Lasix), 20 MG PO DAILY Gabapentin (Gabapentin), 300 MG PO DAILY, (Reported) Hydrochlorothiazide (Hydrochlorothiazide), 12.5 MG OR DAILY, (Reported) Isosorbide Mononitrate (Isosorbide Mononitrate Er), 30 MG PO DAILY Losartan Potassium (Losartan Potassium), 25 MG PO DAILY Vit W/ Ferrous Fumara (), 1 TAB OR DAILYP, (Reported) Spironolactone (Aldactone), 25 MG PO DAILY Sumatriptan Succinate (Sumatriptan Succinate), 100 MG PO DAILY, (Reported) Scheduled PRN Ibuprofen (Ibuprofen), 600 MG PO TIDPRN PRN Nitroglycerin (Nitrolingual), 0.4 MG TL 6XD PRN Miscellaneous Medications Ipratropium [place] Hfa (Atrovent Hfa), 17 MCG IN, (Reported) Discharge Statement: "Patient was advised to return to the ER or call 911 if any headaches, dizziness, shortness of breath, chest pain, abdominal pain, bleeding, fevers, or worsening of medical condition. Patient was counseled about treatment plan, medications, possible side effects, patientverbalized understanding. All questions were answered to the best of my ability. This discharge took greater then 30 minutes in planning, reviewing documentation, counseling the patient, and discussing with other team members." ASSESSMENT ASSESSMENT Assessment PARTICALLY RUPTURED FAGAN CYST. ACUTE ON CHRONIC HEART FAILURE, COCAINE INDUCED. HYPERTENSIVE EMERGENCY, COCAINE INDUCED. Addendum Addendum Addendum I was physically present for the king portions of the service provided to patient by THE RESIDENT. I have reviewed the documentation, discussed the case with resident and agree with the resident's documentation except as noted. Also the patient's clinical case was discussed with the patient's nurse. This medical document was created using an electronic medical record system with computerized dictation system. Although this document has been carefully reviewed, there might still be some phonetic and typographical errors. These areas are purely typographical due to imperfections of the software programs, and do not reflect any compromise in the patient's medical care. Late signature. Date of Service: Nov 01, 2024 Billing Provider: DEMAR SOUZA MD Common Visit Codes: 15175-PML/OBS DISCH DAY >30min DANIELEJIA Nov 01, 2024 17:04 DEMAR SOUZA MD Nov 03, 2024 06:02
--- NOTE | 2024-11-01 17:46 | DVHSR ---
APPROVED REPORT EXAM: Two-dimensional and M-mode echocardiogram with Doppler and color Doppler. Blood Pressure: 135/75 mmHg INDICATION Heart Failure heart failure RISK FACTORS Height: 63, Weight: 227 DIMENSIONS LVDd6.4 (3.8-5.7cm)LA (2D)4.5 (1.9-4.0cm)Aortic Root3.6 (2.0-3.7cm) LVDs5.4 (2.5-4.0cm)LA (MM) (1.9-4.0cm)Aortic Cusp Exc2.0 (1.5-2.0cm) EF (%) 35.0 (55-70%)Rt. Atrium4.5 (1.9-4.0cm)Asc. Aorta cm Mitral Valve MitralMitral Stenosis E wave0.86m/sMV Mean GR.mmHg A wave0.95m/sMV Peak GR.mmHg E/A ratio0.92D MVAcm2 DECEL [id number] 1/2 Shsk30er IVRTmsDop MVA2.46cm2 Aortic Valve Aortic ValveAortic Stenosis V10.85m/Tanvir Mean GR.7mmHg V21.87m/Tanvir Peak GR.14mmHg LVOT Diameter2.4 (1.8-2.4cm)Doppler AVA2.06cm2 Other Information Quality : Technically LimitedRhythm : Conclusion LVEF moderately reduced, EF 35-40%, global hypokinesis Right ventricle size and function normal Mild left and right atrial enlargement
== END 2024-11-01 14:25 | disposition home or self-care (01) | DRG 351 ==
LOC: ER 22:19 → OVERFLOW 10-31 01:57 → TELE-WESTW 10-31 15:55
PROVIDERS: ADMIT Internal Medicine; ATTEND Internal Medicine
DX: M66.0 Rupture of popliteal cyst (principal); I50.23 Acute on chronic systolic (congestive) heart failure; I21.A1 Myocardial infarction type 2; I20.1 Angina pectoris with documented spasm; I42.7 Cardiomyopathy due to drug and external agent; I16.1 Hypertensive emergency; I11.0 Hypertensive heart disease with heart failure; E66.01 Morbid (severe) obesity due to excess calories; Z68.37 Body mass index [BMI] 37.0-37.9, adult; E88.810 Metabolic syndrome; F17.210 Nicotine dependence, cigarettes, uncomplicated; G89.29 Other chronic pain; J45.909 Unspecified asthma, uncomplicated; S83.8X1A Sprain of other specified parts of right knee, initial encounter; Z79.82 Long term (current) use of aspirin; Z79.899 Other long term (current) drug therapy; Z88.0 Allergy status to penicillin; X58.XXXA Exposure to other specified factors, initial encounter; Y93.89 Activity, other specified; Y92.89 Other specified places as the place of occurrence of the external cause; Y99.8 Other external cause status
CPT/HCPCS: 36415; 70450; 71045; 73562; 80048; 80053; 80076; 80307; 80320; 81001; 82306; 82607; 82746; 83036; 83605; 83735; 83880; 84443; 84484; 85025; 87040; 87086; 93005; 93306; 93971; G0378; J1885; J2405; Q0162